=== PATIENT | female | born 1945 | race Caucasian/White ===

== ENCOUNTER → 2016-11-04 | Outpatient (REF) | payer MEDICARE, MEDICAID ==
[~2016-11-04] MED LIST: /ADVA50050 IN; /INSUREG; /METO5TA PO; /MOXI40TA; ADVAIR; AKWASOL OU; ALB2.5NEB INH; ALBU0.084 IN; ASPI81CH3 PEG; ASPI81CH32 PEG; ASPI81TA OR; ASPI81TA85 PEG; AYR0.65D; AYR0.65S; AZIT200S30 PEG; B COTAB3 PO; BACITAB3 PEG; BESI0.6S OU; BISA10SU2; CALC1CAP PEG; CALCPOW2 OR; CARBAMIDE PEROXIDE AD; CEFT500T; CINA30TA PEG; CIPR500T4; CIPRO; COLA100C GT; COLA100C2; COLA100C2 OR; COMP1PAK PO; COUM1TAB14 PEG; COUM1TAB19 PEG; COUM2.5T11 PEG; DAPT50VL IV; DARB300VL IV; DARB60SYR; DEPA500T; DEPA500T OR; DESI13CR2 TOP; DESIOIN3 TOP; DICL13PA TOP; DICL1GEL TOP; DOCU10CA GT; DOCU10CA PO; DOCU5LIQ PEG; DOXY-278 PEG; DOXY100C PEG; DOXY100C PO; DULC10SU2 PR; DULC10SU9 PR; DULCOLAX; DULCOLAX PR; ENEMENE3 PR; ERYTHROPOIETIN; ERYTOIN8 OU; FLAG500T PEG; FLEEENE4 PR; FOLI1TAB; FOLI1TAB OR; FOLI1TAB2 PEG; GUAI100S7 PEG; GUAI10EL PO; GUAIPOW; GUAIPOW OR; IBUP100S2 PO; INSUH10VL SC; IPRASOL4 IN; IPRASOL4 NEB; KEFL500C7 PEG; LEVA12INH INH; LEVA250T PEG; LEVA250T PO; LEVO100T5 PEG; LIQULIQ6 PO; LOPR50TA; LOPRESSOR; LOPRESSOR 25 MG; MANNITOL; MECLIZINE; METAMUCIL; MIAC1SPR; MIDO10TA PEG; MIDO5TA PEG; MIRALEX; MOM30SS PO; MUCI600T34 PO; MULTLIQ7 PEG; MULTTAB62 PEG; NASA0.057; NEOSSOL TOP; NEPHTAB PO; NEPRLIQ PO; NEPRLIQ3 PEG; NEUR300C; NEUR300C OR; NEXI40GR PEG; NYST10PW TOP; ONDA4TAB6 PEG; OSEL75CA PEG; PANT40TA2 PEG; PHOS667C PEG; PHOSLO; PHOSLO667 MG; PHOSLO667 MG OR; POTA20EL PEG; POTA20LI2 PEG; PRED10PA PEG; PRED10TA PO; PRED20TA; PRED20TA PEG; PRED20TA PO; PREVACID PEG; PRIL20CA; PRIL20CA OR; PROC10CA; PROC10CA OR; PROCRIT3000 MG/ML; PROT1TAB2 PEG; PROTPAK PEG; PULM0.5S INH; RANI150I2 PEG; REGL5TAB2 PEG; RENV0.8P PO; RENV2.4P PEG; RENV2TAB PEG; RENV2TAB PO; RENVELA; ROBISYP PEG; ROBISYP PO; ROBISYP3 OR; ROBITUSSIN; SENN8.6C PEG; SENS30TA PO; SODIGEL; SYNT100T; SYNT100T OR; TRAM50TA2; TRAM50TA2 OR; TRAM50TA2 PEG; TRAM50TA2 PO; ULTR50TA PO; VENOFER; VITA100037 PEG; VITA100041 PEG; VITA100066 PO; VITA1TAB28 PEG; VITAD1000T OR; VITAMIN B COMPLEX WI; VITAMIN D50000 UNT; XOPE0.632; XOPE1.252; XOPE1.252 IN; ZEMPLAR; ZITH500T PO; ZOCO20TA; ZOCO20TA OR; ZOCO20TA PEG; ZOCO5TAB; ZOCOR; ZOFR20TA PEG; ZOFR4SOL PO; [UNRECOGNIZED DRUG - CODE] IV; [UNRECOGNIZED DRUG - CODE] IV; [UNRECOGNIZED DRUG - CODE] PEG; [UNRECOGNIZED DRUG - CODE] PEG; [UNRECOGNIZED DRUG - OTHER]; [UNRECOGNIZED DRUG - OTHER]; [UNRECOGNIZED DRUG - OTHER]; [UNRECOGNIZED DRUG - OTHER]; [UNRECOGNIZED DRUG - OTHER] OR; [UNRECOGNIZED DRUG - OTHER] PEG; deltasone GT; lopressor; mycostatin TOP; phoslo; robitussin; ventolin neb INH
[2016-11-04 13:50] LABS: MEAN CORPUSCULAR HEMOGLOBIN 32.4 pg (27.0-33.0); MEAN CORPUSCULAR HGB CONC 31.8 g/dl (32.0-36.5); MEAN CORPUSCULAR VOLUME 101.8 fl (80.0-96.0); RED CELL DISTRIBUTION WIDTH 17.6 % (11.5-14.5)
== END ==
PROVIDERS: ATTEND Internal Medicine
DX: D64.9 Anemia, unspecified (principal)

== ENCOUNTER → 2016-11-07 | Outpatient (REF) | payer MEDICARE, MEDICAID ==
[2016-11-07 14:31] LABS: MEAN CORPUSCULAR HEMOGLOBIN 32.4 pg (27.0-33.0); MEAN CORPUSCULAR HGB CONC 31.2 g/dl (32.0-36.5); RED CELL DISTRIBUTION WIDTH 16.7 % (11.5-14.5); WHITE BLOOD COUNT 6.5 K/mm3 (4.0-10.0)
== END ==
PROVIDERS: ATTEND Internal Medicine
DX: D64.9 Anemia, unspecified (principal)

== ENCOUNTER 2017-01-12 20:33 | Inpatient (IN) | payer MEDICARE, MEDICAID ==
[~2017-01-12 20:33] MED LIST changes: +POTA10SO11 PEG; -POTA20EL PEG; +VANC10005 IV; -[UNRECOGNIZED DRUG - CODE] IV
[2017-01-12 21:02] LABS: BASO % 0.5 % (0.0-1.0); EOS # 0.3 K/mm3 (0.0-0.50); EOS % 3.1 % (0.0-3.0); LARGE UNSTAINED CELL # 0.1 K/mm3 (0.0-0.4); LARGE UNSTAINED CELL % 1.3 % (0.0-4.0); LYMPH # 0.7 K/mm3 (1.5-4.5); LYMPH % 6.6 % (24.0-44.0); MEAN CORPUSCULAR HEMOGLOBIN 32.6 pg (27.0-33.0); MEAN CORPUSCULAR HGB CONC 31.3 g/dl (32.0-36.5); MEAN CORPUSCULAR VOLUME 103.9 fl (80.0-96.0); MONO # 0.5 K/mm3 (0.0-0.8); MONO % 5.6 % (0.0-5.0); NEUTROPHILS # 7.2 K/mm3 (1.8-7.7); NEUTROPHILS % 82.8 % (36.0-66.0); PLATELET COUNT, AUTOMATED 185 k/mm3 (150-450); RED CELL DISTRIBUTION WIDTH 16.7 % (11.5-14.5); WHITE BLOOD COUNT 8.7 K/mm3 (4.0-10.0)
[2017-01-12 21:04] LABS: ABG BASE EXCESS 0.3 (-2.0-2.0); ABG HCO3 24.7 MEQ/L (22.0-26.0); ABG PARTIAL PRESSURE CO2 39.1 mmHg (35.0-45.0); ABG PARTIAL PRESSURE O2 64.8 mmHg (75.0-100.0); ABG STANDARD HCO3 24.6 MEQ/L (22.0-26.0); ABG TOTAL CO2 25.9 MEQ/L (23.0-31.0); ABG pH (ARTERIAL) 7.418 UNITS (7.350-7.450)
[2017-01-12 21:30] LABS: ANION GAP 15 MEQ/L (8-16); BLOOD UREA NITROGEN 55 MG/DL (7-18); CALCIUM LEVEL 9.6 MG/DL (8.8-10.2); CARBON DIOXIDE LEVEL 25 MEQ/L (21-32); CHLORIDE LEVEL 90 MEQ/L (98-107); CREATININE FOR GFR 5.79 MG/DL (0.55-1.02); GLOMERULAR FILTRATION RATE 7.6 (>39); GLUCOSE, FASTING 107 MG/DL (83-110); SODIUM LEVEL 130 MEQ/L (136-145)
[2017-01-12] MEDS: IPRATROPIUM 0.5MG/ALBUTEROL 2.5MG INH SOL UD 3ML (DUONEB)(J7620) NEB PRN ×3 (21:34→22:15)
[2017-01-12] MEDS ORDERED: MEROPENEM INJ 1 GM in D5W MINI-BAG PLUS 100 ML IV ONE (22:15)
[2017-01-12 22:50] LABS: MAGNESIUM LEVEL 3.1 MG/DL (1.8-2.4)
[2017-01-12] MEDS ORDERED: SYNT125T PO (23:25)
[2017-01-12] MEDS ORDERED: IPRATROPIUM 0.5MG/ALBUTEROL 2.5MG INH SOL UD 3ML (DUONEB)(J7620) NEB PRN (23:30)
[2017-01-12] MEDS ORDERED: CEPH500T PEG (23:30)
[2017-01-12] MEDS ORDERED: ERYTOIN8 OU (23:30)
[2017-01-13] VITALS (27 sets, daily range): BP systolic 83–152; BP diastolic 48–83; O2SAT 88–95
[2017-01-13] MEDS ORDERED: BISACODYL 10 MG SUPP PR PRN (00:15)
[2017-01-13] MEDS ORDERED: SENNA 8.6 MG TAB (SENOKOT) PEG PRN (00:15)
[2017-01-13] MEDS ORDERED: FLEET ENEMA PR PRN (00:15)
[2017-01-13] MEDS: methylPREDNISolone INJ 125 MG/2 ML VIAL (J2930) IV SCH ×4 (02:14→23:34)
[2017-01-13] MEDS: SODIUM CHLORIDE 0.9% NASAL GEL 15MG (AYR) SCH ×2 (02:14→21:21)
[2017-01-13] MEDS: ERYTHROMYCIN OPHTH OINT OU SCH ×4 (02:14→21:20)
[2017-01-13] MEDS: SIMVASTATIN 20 MG TAB PEG SCH ×2 (02:15→21:20)
[2017-01-13] MEDS: IPRATROPIUM 0.5MG/ALBUTEROL 2.5MG INH SOL UD 3ML (DUONEB)(J7620) NEB PRN (05:57)
[2017-01-13] MEDS: FOLIC ACID 1 MG TAB PEG SCH (06:08)
[2017-01-13] MEDS: LEVOTHYROXINE 0.125 MG TAB (125 MCG) PO SCH (06:08)
[2017-01-13] MEDS: CINACALCET 30 MG TAB (SENSIPAR) PEG SCH (06:08)
[2017-01-13] MEDS: METOCLOPRAMIDE 5 MG TAB PEG SCH ×2 (06:08→21:20)
[2017-01-13] MEDS: MIDODRINE 5 MG TAB PEG SCH ×3 (06:18→16:45)
[2017-01-13] MEDS: IPRATROPIUM 0.5MG/ALBUTEROL 2.5MG INH SOL UD 3ML (DUONEB)(J7620) NEB SCH ×4 (07:08→19:05)
[2017-01-13 07:27] LABS: MEAN CORPUSCULAR HEMOGLOBIN 34.2 pg (27.0-33.0); MEAN CORPUSCULAR HGB CONC 32.4 g/dl (32.0-36.5); MEAN CORPUSCULAR VOLUME 105.4 fl (80.0-96.0); RED CELL DISTRIBUTION WIDTH 16.8 % (11.5-14.5); WHITE BLOOD COUNT 9.7 K/mm3 (4.0-10.0)
[2017-01-13 07:32] LABS: ANION GAP 17 MEQ/L (8-16); BLOOD UREA NITROGEN 60 MG/DL (7-18); CALCIUM LEVEL 9.3 MG/DL (8.8-10.2); CARBON DIOXIDE LEVEL 20 MEQ/L (21-32); CHLORIDE LEVEL 90 MEQ/L (98-107); CREATININE FOR GFR 6.31 MG/DL (0.55-1.02); GLOMERULAR FILTRATION RATE 6.9 (>39); GLUCOSE, FASTING 147 MG/DL (83-110); SODIUM LEVEL 127 MEQ/L (136-145)
[2017-01-13 08:20] LABS: POTASSIUM SERUM 5.8 MEQ/L (3.5-5.1)
--- NOTE | 2017-01-13 08:44 | REP ---
Portable chest x-ray: Sitting AP view. History: Dyspnea. Cough. Comparison study is from October 16, 2016. Findings: The patient is rotated somewhat to the left for the current exam. Mild cardiomegaly is observed. A tunneled catheter is seen on the right side with its tip in the region of the right atrium. Pulmonary vasculature is congested. No pleural effusion is seen. No infiltrate is noted. Impression: Pulmonary vascular congestion. No acute infiltrate seen. Signed by Yoshi Day MD 01/13/2017 12:16 P
[2017-01-13] MEDS: CALCITONIN NASAL SPRAY 3.7 ML BTL SCH (08:59)
[2017-01-13] MEDS: POLYVINYL ALCOHOL OPHTH SOLN 15 ML(LIQUITEARS) OU SCH ×4 (09:00→21:20)
[2017-01-13] MEDS: HEPARIN SOD (PORCINE) 5000 UNITS/ML VIAL SC SCH ×2 (09:00→21:20)
[2017-01-13] MEDS ORDERED: POTASSIUM CHLORIDE 10% LIQ 20 MEQ/15 ML UDC PEG SCH (09:00)
[2017-01-13] MEDS ORDERED: HEPARIN 1,000 UNITS/ML 10ML VIAL (FOR RADIOLOGY& DIALYSIS ONLY) IV ONE (09:30)
--- NOTE | 2017-01-13 17:43 | ECGEPIP ---
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
--- NOTE | 2017-01-13 22:12 | HPE ---
DATE OF ADMISSION: 01/12/2017 PRIMARY CARE PROVIDER: Dr. Heather Childers CHIEF COMPLAINT: Shortness of breath. HISTORY OF PRESENT ILLNESS: The patient is a 71-year-old severely deaf woman with known history of diastolic congestive heart failure, end-stage renal disease on hemodialysis, chronic obstructive pulmonary disease (COPD), who lives at [facility] where she was reportedly found to be more tachypneic and bradycardic. At that point in time, they brought her to the emergency room for evaluation. In the emergency room, she was found to be mostly edematous and hospitalist team was called for admission. At this time, the patient tells me she is feeling better. She denies shortness of breath. She knows she is in the hospital. She knows she is in [place], but she is very hard of hearing. At the present time, she denies any pain or shortness of breath, nausea, vomiting, fevers, or chills, or cough, or recent sick contacts. PAST MEDICAL HISTORY: 1. End-stage renal disease on hemodialysis Friday, Friday, and Friday. 2. Diastolic congestive heart failure. 3. COPD on two liters of oxygen at baseline. 4. Mild mental retardation. 5. Dementia. 6. Aspiration status post percutaneous endoscopic gastrostomy (PEG) tube. 7. Severely deaf. 8. Seizure disorder. 9. Recurrent gastrointestinal bleeds in the past. 10. Hypothyroidism. 11. Osteoarthritis. PAST SURGICAL HISTORY: 1. PEG tube placement. 2. Catheter insertion. 3. Pericardial window. ALLERGIES: PENICILLIN, ACETAMINOPHEN. SOCIAL HISTORY: She is a DO NOT RESUSCITATE. She lives at [facility]. No alcohol or illicit drug use, or tobacco use. FAMILY HISTORY: Noncontributory. REVIEW OF SYSTEMS: Negative other than history of present illness (HPI). HOME MEDICATIONS: - DuoNebs four times a day - cephalexin 500 mg via PEG twice a day - Nepro with carbohydrate studies 200 mL via PEG four times a day - Renvela 2.4 grams pack via PEG daily - vitamin D and C, one tablet via the PEG daily - zinc oxide 13% cream topically dose daily. - artificial tears 1.4% two drops OU four times a day - Dulcolax 10 mg suppository per rectum as needed for constipation - calcitonin 200 units - nasal spray daily - cinacalcet 30 mg through the PEG daily - erythromycin 5 mg/gram ointment OU three times a day - folic acid 1 mg daily - levothyroxine 125 mcg daily - Reglan 5 mg by mouth twice a day - mitogen 10 mg via the PEG tube three times a day - potassium chloride 10 mEq via the PEG daily - senna 8.6 mg at bedtime as needed constipation - simvastatin - Zocor 20 mg via the PEG at bedtime - sodium phosphate enema as needed for constipation PHYSICAL EXAMINATION: Heart rate 54, appears to be in sinus rhythm, respiratory rate 22, blood pressure 160/65, oxygen saturation 97% on two liters. GENERAL: She is a frail, elderly, obese, female sitting up on the stretcher. She appears comfortable. She takes short breaths, but does not appear to be in any acute distress. HEENT: Poor dentition. Moist mucous membranes. Unable to asses for elevation of central venous pressure secondary to body habitus. She is very deaf and answers questions only when screamed directly in her ear. CARDIOVASCULAR: S1, S2, bradycardic. No distant heart sounds appreciated. RESPIRATORY EXAM: Short breaths with diffuse expiratory wheeze. ABDOMEN: Grossly obese. EXTREMITIES: There is 2+ edema bilaterally. She has an HD Cath in the right side of the chest. LABORATORY STUDIES: WBC 8.7, hemoglobin 11.9, hematocrit 38, platelet count is 185. Chemistry panel: Sodium 130, potassium 5, chloride 90, bicarbonate 25, BUN 55, creatinine 5.7, lactic acid 2.3, magnesium 3.1, BNP is elevated at 1600. Arterial blood gas reveals a pH of 7.4, pCO2 of 39.1, pO2 of 64.8. Blood cultures are pending. Influenza swab is negative. IMAGING: The patient had a chest x-ray that appears to reveal some venous congestion and pulmonary edema. ASSESSMENT AND PLAN: This is a 71[facility] with known history of chronic obstructive pulmonary disease (COPD) and end-stage renal disease presenting with dyspnea. 1. Dyspnea. She does appear to be improved. At the present time thus far in the emergency room (ER), she has received nebulizer treatments. Based on her physical exam, I suspect this is more diastolic congestive heart failure decompensation with pulmonary edema. The patient will benefit from hemodialysis. She is mildly more hypoxic from her baseline but improved with sitting up. We will keep the head of her bed up. We will monitor intake and output and daily weights. We will place a consult to Dr. Márquez of nephrology to see if he can help us with dialysis and fluid removal tomorrow. Tomorrow is her regularly scheduled dialysis day. 3. Less likely decompensation of her chronic obstructive pulmonary disease (COPD). May be contributing to her shortness of breath as well. Her baseline is two liters of oxygen. She is requiring four liters while I am in the room in the ER. They are trending it up. I will treat her with Solu-Medrol and nebulizer treatments. Nebulizer treatments did appear to help her in the emergency room; however, I am not convinced of any infectious process acutely at this time. Her chest x-ray preliminary read has concern for right middle lobe pneumonia comparing with old prior exams. I am not convinced of this. This is something new. She is not febrile. She is not tachycardic. She is not hypothermic. I think she has a health care associative pneumonia. At this time, I will hold off on any antibiotics. We will culture her. 4. End-stage renal disease as outlined above. We will continue her home medications. 5. Aspiration. The patient is status post percutaneous endoscopic gastrostomy and she receives her medication through this. 6. Severe deafness. The patient will has to be screamed directly in her ear but this is done so she does answer questions appropriate. 7. Secondary hyperparathyroidism. The patient is on Remeron, calcitonin. 8. Hyperparathyroidism. We will check a TSH. Continue with levothyroxine. 9. Bradycardia. Patient has been bradycardic in the past and looking back at old vital stats. However, she does appear to be slightly more so and she does appear to be in sinus rhythm. I will recheck an EKG and admit her to the progressive care unit (PCU) and monitor her closely. We will trend her cardiac enzymes and her lactic acid. She is asymptomatic. 10. Chronic constipation. Continue with her home bowel regimen. 11. Dyslipidemia. Continue with statin. 12. Chronic hypotension. The patient is on midodrine. 13. Deep vein thrombosis (DVT) prophylaxis. The patient is on heparin. DISPOSITION: The patient is admitted to the progressive care unit under the care of Dr. Márquez who will continue to follow the patient at 7 a.m. [facility]ITAL[facility]
[2017-01-14] VITALS (7 sets, daily range): BP systolic 113–134; BP diastolic 59–63
[2017-01-14 05:08] LABS: MEAN CORPUSCULAR HEMOGLOBIN 31.2 pg (27.0-33.0); MEAN CORPUSCULAR HGB CONC 30.1 g/dl (32.0-36.5); MEAN CORPUSCULAR VOLUME 103.6 fl (80.0-96.0); RED CELL DISTRIBUTION WIDTH 16.2 % (11.5-14.5); WHITE BLOOD COUNT 7.4 K/mm3 (4.0-10.0)
[2017-01-14] MEDS: LEVOTHYROXINE 0.125 MG TAB (125 MCG) PO SCH (05:21)
[2017-01-14] MEDS: MIDODRINE 5 MG TAB PEG SCH ×4 (05:21→16:42)
[2017-01-14 05:29] LABS: ALBUMIN 3.9 GM/DL (3.2-5.2); CALCIUM LEVEL 9.4 MG/DL (8.8-10.2); CREATININE FOR GFR 3.81 MG/DL (0.55-1.02); GLOMERULAR FILTRATION RATE 12.4 (>39); PHOSPHORUS LEVEL 4.1 MG/DL (2.5-4.9)
[2017-01-14] MEDS: IPRATROPIUM 0.5MG/ALBUTEROL 2.5MG INH SOL UD 3ML (DUONEB)(J7620) NEB SCH ×4 (08:02→20:36)
[2017-01-14] MEDS: HEPARIN SOD (PORCINE) 5000 UNITS/ML VIAL SC SCH ×2 (08:54→21:18)
[2017-01-14] MEDS: CINACALCET 30 MG TAB (SENSIPAR) PEG SCH (08:54)
[2017-01-14] MEDS: methylPREDNISolone INJ 125 MG/2 ML VIAL (J2930) IV SCH ×2 (08:54→16:43)
[2017-01-14] MEDS: POLYVINYL ALCOHOL OPHTH SOLN 15 ML(LIQUITEARS) OU SCH ×4 (08:55→21:19)
[2017-01-14] MEDS: CALCITONIN NASAL SPRAY 3.7 ML BTL SCH (08:55)
[2017-01-14] MEDS: ERYTHROMYCIN OPHTH OINT OU SCH ×3 (08:55→21:19)
[2017-01-14] MEDS: METOCLOPRAMIDE 5 MG TAB PEG SCH ×2 (08:55→21:17)
[2017-01-14] MEDS: FOLIC ACID 1 MG TAB PEG SCH (08:55)
--- NOTE | 2017-01-14 10:17 | CR ---
DATE OF CONSULTATION: 01/13/2017 REFERRING PHYSICIAN: Dr. Dari Montez REASON FOR CONSULTATION: Shortness of breath in this lady with end-stage renal disease. HISTORY OF PRESENT ILLNESS: Mrs. Navarrete is a 71-year-old female who is a long[facility]term [facility] resident with multiple core morbid conditions. She has a long history of end-stage renal disease, COPD, diastolic congestive heart failure, coronary artery disease and mental retardation. The patient was sent to the emergency room last evening due to shortness of breath. She did receive her last hemodialysis treatment on Friday. However, over the weekend she developed shortness of breath. She is admitted to intensive care unit and is requiring 4 liters of oxygen via nasal cannula to maintain her oxygen saturation above 90%. A nephrology consultation was requested for urgent hemodialysis this morning. Dr. Reddy called for a consult. PAST MEDICAL AND SURGICAL HISTORY: Significant for: 1. End-stage renal disease. 2. COPD. 3. 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 4. History of coronary artery disease. 5. History of diastolic congestive heart failure. 6. History of pulmonary hypertension. 7. History of mild dementia and mental retardation. 8. History of mitral regurgitation. 9. History of atrial fibrillation. 10. History of coronary artery disease. 11. Hypothyroidism. 12. History of multiple pulmonary nodules. 13. History of seizure disorder. 14. History of severe degenerative arthritis and inability to ambulate. 15. History of recurrent aspiration pneumonias in the past, status post feeding tube placement. 16. History of anemia of chronic kidney disease. 17. Prior history of MRSA bacteremia in the past. MEDICATIONS: Her [facility] medications include: -Nepro 200 via G-tube four times a day. - multivitamin liquid 5 mL once a day - Aspirin 81 mg daily. - DuoNebs as needed for shortness of breath. - Calcitonin 200 units intranasally 1 spray once a day. - Sensipar 30 mg daily - Folic acid 1 mg daily. - levothyroxine 100 mcg daily. - Midodrine 10 mg three times a day for chronic hypotension. - potassium chloride 20 mEq daily via G-tube. - Zocor 20 mg daily. - Renvela suspension 2.4 grams per day. ALLERGIES: The patient has allergy to PENICILLIN and ACETAMINOPHEN. PERSONAL AND SOCIAL HISTORY: The patient is and is currently [facility] resident. She does not smoke or drink. She is poorly communicative. FAMILY HISTORY: Negative for end-stage renal disease. REVIEW OF SYSTEMS: The patient is unable to provide much information. She is awake and interactive, however does not talk much. She is quite short of breath. There is no reported fever or chills. She is currently receiving 4 liters oxygen via nasal cannula. No other pertinent information is available or can be obtained. PHYSICAL EXAMINATION: Temperature is 97.2 degrees Fahrenheit, heart rate 60 per minute and respiratory rate 24 per minute. Blood pressure 104/55 mmHg and oxygen saturation 96% on 4 liters oxygen. Head is atraumatic. Oral hygiene is poor. Pupils are equal and reactive to light and sclera is anicteric. Neck is short and impossible to check for jugular venous distention. The range of motion is quite limited on her neck and shoulders. Heart sounds are distant but regular. Lungs have bilateral rhonchi and expiratory wheezing. Abdomen is soft and a G-tube is in place. Bowel sounds are present. Extremities: Have no cyanosis or clubbing. Skin has no rash or ulcers. Neurologically she is awake and interactive. She does not talk much however she does node her head on questions. LABORATORY DATA: WBC count 8.7, hemoglobin 11.9 and hematocrit 38.0. Sodium 127 and potassium 5.8. CO2 20, chloride 90, BUN 60 and creatinine 6.31. Lactic acid 2.3 and calcium 9.3. Her BNP level is 1600. Blood gas showed a pH of 7.41, pCO2 39 and pO2 64. Chest x-ray done in the emergency room was reviewed independently. She has cardiomegaly and bilateral pulmonary vascular congestion. There is a questionable left pleural effusion. PROBLEMS: 1. Shortness of breath: Most likely this is related to a combination of COPD and volume overload. She does have history of similar episodes in the past. Urgent hemodialysis is being arranged this morning and will try to remove about 3 liters of fluid as tolerated. After dialysis, she will be reassessed and we will consider further dialysis tomorrow if indicated. In the meantime she should remain on limited fluids. She does require tube feeding and fluids with her medications via G-tube. 2. Hyperkalemia: This is related to feeds and potassium supplement. In the past, she has been hypokalemia. We will recheck her electrolytes tomorrow morning. She will be dialyzed with 2.0 mEq potassium bath. 3. Hyponatremia: This is most likely related to volume overload. Will remove about 3 liters of fluid which is likely to help with her hyponatremia. 4. End-stage renal disease: The patient is due for hemodialysis today. We will perform her full regular hemodialysis for 3-1/2 hours. 5. Chronic hypotension: The patient has been on midodrine 10 mg three times a day due to chronic hypotension. I recommend to continue with the same. 6. COPD: The patient does have chronic lung disease and I would recommend to continue with bronchodilator nebulizers. I do not feel that at this point she needs steroids as most of her problem is related to volume overload. I thank you for involving me in the care of Mrs. Navarrete. I will follow her along with you.
--- NOTE | 2017-01-14 17:12 | IPN ---
DATE: 01/14/2017 SUBJECTIVE: This is a 71-year-old female who was seen and examined at bedside. Yesterday, she underwent hemodialysis and tolerated that well. She had 3 liters removed. Per nursing staff, her breathing has been more comfortable. The patient herself wants to know when she can go home. Denies any chest pain, palpitations, fevers, chills, diarrhea, constipation, abdominal pain. She still has shortness of breath, but improved. OBJECTIVE: VITAL Signs: Blood pressure 128/59, heart rate 68, temperature 99, respiratory rate 26, pulse oximetry 95% on 2 liters nasal cannula. Intake and output last 24 hours: 1280 and 3 liters. Weight is 64.2 kg, yesterday it was documented at 67.2. One bowel movement. General: The patient was lying in bed, comfortable, in no acute distress, chronically ill appearing but smiling, pleasant. HEENT: Normocephalic, atraumatic. Poor dentition. Moist oral mucosa. Extraocular movement intact. Sclerae is anicteric. Neck is large. Could not appreciate jugular venous distention (JVD) secondary to neck size. Chest: Symmetric chest rise with some abdominal muscle use. Heart sounds distant sounding but regular. Lungs were diminished bilateral lung bases with occasional crackle, improved compared to yesterday. Abdomen is soft, nontender, nondistended. Bowel sounds present. No guarding, no rebound. Left abdomen has a G-tube in place. Area is clean and dry. Extremities: No pedal edema. Pedal pulses present bilaterally. No clubbing or cyanotic skin. Neurologically, the patient tends to nod throughout her exam. Does answer and ask questions appropriately. LABORATORY DATA: WBC 7.4, hemoglobin 11.2, hematocrit 37.2, platelets 170. No significant change compared to yesterday. Sodium 131, improved from yesterday 127, potassium 5, chloride 95, carbon dioxide 24, BUN 43, creatinine 3.81, fasting glucose 147, calcium 9.4, phosphorus 4.1, albumin 3.9. IMPRESSION AND PLAN: Ms. Navarrete is a pleasant 71-year-old female with an extensive past medical history including end-stage renal disease, on hemodialysis, restrictive lung disease due to chest deformity, coronary artery disease, diastolic heart failure , pulmonary hypertension, admitted for congestive heart failure exacerbation. 1. Acute hypoxic respiratory failure. Due to a combination of chronic obstructive pulmonary disease and congestive heart failure exacerbation. She is currently on Solu-Medrol three times a day. She is status post dialysis yesterday and tolerated that well. Was able to remove 3 liters as planned. Because she is improving today, we will plan for dialysis tomorrow. Continue tube feedings four times a day. 2. Hyperkalemia. Patient chronically runs hypokalemia. She was dialyzed yesterday and potassium has now improved. We discontinued her potassium supplementation, which she requires frequently outpatient due to her chronic hypokalemia. 3. Hyponatremia. Likely secondary to fluid overload. Her volume has improved and so has her sodium level. 4. Chronic hypocalcemia. Continue calcitonin. 5. End-stage renal disease, on hemodialysis yesterday, next dialysis will be tomorrow. 6. Chronic hypotension. Continue midodrine 10 mg three times a day. 7. Chronic obstructive pulmonary disease. She is on steroids; however, her symptoms were likely secondary to congestive heart failure rather than COPD and might not require current strong dose of Solu-Medrol. My preceptor for this patient encounter was Dr. Márquez. The preceptor was physically present in the building during the encounter and was fully available. As needed, all aspects of the patient interview, examination, medical decision making process, and medical care plan development were reviewed and approved by the preceptor. The preceptor is aware and concurs with the plan as stated in the body of this note and will attest to such by his/her cosignature. IRA
--- NOTE | 2017-01-14 17:19 | IPN ---
DATE: 01/14/2017 Ms. Navarrete has done well overnight. She is not a particularly useful historian. No issues noted by staff. Temperature is 96.8, pulse 66, respiratory rate 24, blood pressure 133/62, 94% on 2 liters. Intake and output notable for a negative fluid balance of -1720, one bowel movement yesterday. She is awake, smiling, appears happy. Breathing is symmetrically diminished, I:E ratio is 1:4. Heart is distant sounding. Normal S1, S2. Abdomen is soft, doughy, nontender. White cell count 7.4, BUN 43, creatinine 3.81. Sodium is 131, up from 127. My assessment is as follows: This is a 71-year-old with chronic obstructive pulmonary disease (COPD) and end-stage renal disease who presents with dyspnea, most likely related to fluid overload and need for dialysis. PLAN: 1. Dyspnea. This appears to be improved status post dialysis. I did discuss this case in person with Dr. Márquez. 2. The patient has end-stage renal disease. 3. The patient has a history of aspiration and has a history of a percutaneous endoscopic gastrostomy (PEG) through which she receives her medication. 4. The patient has severe deafness. 5. The patient has hyperparathyroidism. 6. The patient has a history of bradycardia. 7. The patient has chronic constipation. 8. The patient has appropriate deep vein thrombosis (DVT) prophylaxis. 9. The patient will be transferred to the medical-surgical floor.
[2017-01-14] MEDS: SODIUM CHLORIDE 0.9% NASAL GEL 15MG (AYR) SCH (21:00)
[2017-01-14] MEDS: SIMVASTATIN 20 MG TAB PEG SCH (21:17)
[2017-01-15] MEDS: methylPREDNISolone INJ 125 MG/2 ML VIAL (J2930) IV SCH ×2 (00:15→06:01)
[2017-01-15] MEDS: FOLIC ACID 1 MG TAB PEG SCH (05:57)
[2017-01-15] MEDS: MIDODRINE 5 MG TAB PEG SCH ×3 (05:57→18:38)
[2017-01-15] MEDS: CINACALCET 30 MG TAB (SENSIPAR) PEG SCH (05:58)
[2017-01-15] MEDS: LEVOTHYROXINE 0.125 MG TAB (125 MCG) PO SCH (05:58)
[2017-01-15] MEDS: METOCLOPRAMIDE 5 MG TAB PEG SCH ×2 (05:58→21:39)
[2017-01-15] MEDS: ERYTHROMYCIN OPHTH OINT OU SCH ×3 (05:59→21:38)
[2017-01-15] MEDS: POLYVINYL ALCOHOL OPHTH SOLN 15 ML(LIQUITEARS) OU SCH ×4 (05:59→21:38)
[2017-01-15 06:00] VITALS: BP 127/62
[2017-01-15] MEDS: HEPARIN SOD (PORCINE) 5000 UNITS/ML VIAL SC SCH ×2 (06:00→21:38)
[2017-01-15] MEDS: CALCITONIN NASAL SPRAY 3.7 ML BTL SCH (06:00)
[2017-01-15] MEDS: IPRATROPIUM 0.5MG/ALBUTEROL 2.5MG INH SOL UD 3ML (DUONEB)(J7620) NEB SCH ×5 (08:00→21:51)
--- NOTE | 2017-01-15 08:11 | ECGEPIP ---
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
[2017-01-15] MEDS: predniSONE 20 MG TAB PO SCH (08:20)
[2017-01-15 08:28] LABS: ALBUMIN 3.8 GM/DL (3.2-5.2); CALCIUM LEVEL 8.7 MG/DL (8.8-10.2); CREATININE FOR GFR 5.58 MG/DL (0.55-1.02); PHOSPHORUS LEVEL 5.7 MG/DL (2.5-4.9); POTASSIUM SERUM 4.9 MEQ/L (3.5-5.1)
[2017-01-15 08:29] LABS: MEAN CORPUSCULAR HEMOGLOBIN 32.1 pg (27.0-33.0); MEAN CORPUSCULAR VOLUME 103.4 fl (80.0-96.0); RED CELL DISTRIBUTION WIDTH 16.2 % (11.5-14.5)
[2017-01-15] MEDS ORDERED: HEPARIN 1,000 UNITS/ML 10ML VIAL (FOR RADIOLOGY& DIALYSIS ONLY) IV ONE (12:15)
[2017-01-15] MEDS ORDERED: HEPARIN 1,000 UNITS/ML 10ML VIAL (FOR RADIOLOGY& DIALYSIS ONLY) XX ONE (12:15)
[2017-01-15 14:00] VITALS: BP 119/58
--- NOTE | 2017-01-15 15:19 | IPN ---
DATE: 01/15/2017 Ms. Navarrete is feeling well today. She has no complaints of pain, chest pain, or shortness of breath. It is difficult to communicate with her but she is able to share at least that much. No issues noted by staff. Temperature is 98, pulse 64, respiratory rate 22, blood pressure 127/68, 94% on two liters. Intake and output notable for a positive fluid balance of 1020. Weight 65.5 kg. She is awake, appropriately interactive, laughing, smiling. Mucous membranes are moist. Neck is supple. Breathing is symmetrically diminished. Heart is distant sounding, normal S1, S2. Abdomen is soft, doughy, somewhat distended but nontender. LABORATORY DATA: White cell count is 11, hemoglobin 11.5, platelets of 202. Sodium is 130, potassium 4.9, chloride 91, carbon dioxide 22, BUN is 85 with a creatinine of 5.58. ASSESSMENT: This is a 71-year-old with chronic obstructive pulmonary disease (COPD) and end-stage renal disease who presented with dyspnea, most likely related to fluid overload and need for dialysis. PLAN: 1. Dyspnea. This is much improved. She is planned for dialysis today and possible discharge tomorrow. Case was discussed with the renal team. 2. The patient has end-stage renal disease. 3. The patient has a history of aspiration and percutaneous endoscopic gastrostomy (PEG) tube. There was concern at the time of presentation for the possibility of reactive airway disease. Steroids were started and are now being weaned. 4. The patient has severe deafness. 5. The patient has hyperparathyroidism. 6. The patient has chronic constipation. 7. The patient has appropriate deep vein thrombosis (DVT) prophylaxis. Plan for discharge tomorrow.
[2017-01-15] MEDS: SIMVASTATIN 20 MG TAB PEG SCH (21:39)
[2017-01-15] MEDS: SODIUM CHLORIDE 0.9% NASAL GEL 15MG (AYR) SCH (21:44)
[2017-01-15 22:00] VITALS: BP 145/69
[2017-01-16] MEDS: LEVOTHYROXINE 0.125 MG TAB (125 MCG) PO SCH (05:22)
[2017-01-16] MEDS: MIDODRINE 5 MG TAB PEG SCH ×2 (05:22→12:34)
[2017-01-16 06:00] VITALS: BP 149/71
--- NOTE | 2017-01-16 07:06 | IPN ---
DATE OF VISIT: 01/15/2017 SUBJECTIVE: This is a 71-year-old female seen and examined in the dialysis room. Overnight no reported acute event. Continues to feel well, denies any chest pain , fevers, chills, nausea. She was transferred from intensive care unit (ICU) to med/surg yesterday. OBJECTIVE: VITAL SIGNS: Blood pressure 127/62, heart rate 64, temperature 98, respiratory rate 22, pulse oximetry 94% on 2 liters nasal cannula. Intake and output last 24 hours was 1020, no output documented. Weight is 65.5 kg. GENERAL: The patient is lying in bed comfortable, no acute distress. Awake, alert and oriented person, chronically ill appearing. Smiling and pleasant. HEENT: Normocephalic atraumatic. Dry oral mucosa. Poor dentition. Missing teeth. NECK: Large, could not appreciate jugular venous distention (JVD) secondary to neck size. CHEST: Symmetric chest rise. No abdominal muscle use today. Breath sounds diminished bilateral lung bases and anteriorly. HEART: Distant sounding but regular. ABDOMEN: Soft, nontender, nondistended. Bowel sounds present. No guarding, no rebound. Gastric (G) tube in place. EXTREMITIES: No pedal edema. Pedal pulses present bilaterally. Right fistula is working, currently being dialyzed. NEUROLOGIC: Nods throughout the examination. Responds to questions appropriately. PSYCHIATRIC: Always pleasant, smiling, cooperative. LABORATORY DATA: WBC 11, hemoglobin 11.5, hematocrit 37.1, platelets 202. Sodium 130 decreased from yesterday 131, potassium 4.9, chloride 91, carbon dioxide 22, BUN 85, creatinine 5.58, glucose 157, calcium 8.7, phosphorus 5.7. Blood culture negative after 48 hours. IMPRESSION AND PLAN: Ms. Navarrete is a pleasant 71-year-old female with history of endstage renal disease on hemodialysis, restrictive lung disease due to chest deformity, coronary artery disease (CAD), diastolic heart failure, admitted for congestive heart failure (CHF) exacerbation. 1. Acute hypoxic respiratory failure. Resolved. This morning she was changed from Solu-Medrol to prednisone daily. She is undergoing hemodialysis today. 2. Hyponatremia. This is secondary to fluid overload. No significant change compared to yesterday. 3. Chronic hypocalcemia. She is on calcitonin spray. 4. Endstage renal disease on hemodialysis. She is currently undergoing hemodialysis today and tolerating well. Her regular dialysis days are Friday, Friday and Friday. 5. Chronic hypotension. Her home dose Midodrine 10 mg three times a day is continued inpatient. 6. Hyperlipidemia. Continue home dose of Zocor. 7. Secondary hyperparathyroidism. Continue Sensipar 30mg via percutaneous endoscopic gastrostomy (PEG) daily. 8. Hyperkalemia. Resolved with dialysis. The patient chronically runs hypokalemic outpatient and she will likely require her home dose potassium supplementation whenever discharged. From a renal standpoint, if she continues to be doing well the patient may be able to be discharged tomorrow. My preceptor for this patient encounter was Dr. Márquez. The preceptor was physically present in the building during the encounter and was fully available as needed. All aspects of the patient interview, examination, medical decision making process, and medical care plan development were reviewed and approved by the preceptor. The preceptor is aware and concurs with the plan as stated in the body of this note and will attest to such by his co-signature. IRA
[2017-01-16 07:38] LABS: MEAN CORPUSCULAR HEMOGLOBIN 32.9 pg (27.0-33.0); MEAN CORPUSCULAR HGB CONC 31.5 g/dl (32.0-36.5); MEAN CORPUSCULAR VOLUME 104.6 fl (80.0-96.0); RED CELL DISTRIBUTION WIDTH 16.1 % (11.5-14.5); WHITE BLOOD COUNT 12.4 K/mm3 (4.0-10.0)
[2017-01-16] MEDS: IPRATROPIUM 0.5MG/ALBUTEROL 2.5MG INH SOL UD 3ML (DUONEB)(J7620) NEB SCH ×2 (07:46→11:31)
[2017-01-16 07:50] LABS: CALCIUM LEVEL 8.8 MG/DL (8.8-10.2); CREATININE FOR GFR 3.71 MG/DL (0.55-1.02); GLOMERULAR FILTRATION RATE 12.7 (>39); PHOSPHORUS LEVEL 4.3 MG/DL (2.5-4.9); POTASSIUM SERUM 3.9 MEQ/L (3.5-5.1)
[2017-01-16] MEDS ORDERED: DELT1TAB PO (09:48)
[2017-01-16] MEDS: HEPARIN SOD (PORCINE) 5000 UNITS/ML VIAL SC SCH (10:48)
[2017-01-16] MEDS: CINACALCET 30 MG TAB (SENSIPAR) PEG SCH (10:49)
[2017-01-16] MEDS: FOLIC ACID 1 MG TAB PEG SCH (10:50)
[2017-01-16] MEDS: predniSONE 20 MG TAB PO SCH (10:50)
[2017-01-16] MEDS: METOCLOPRAMIDE 5 MG TAB PEG SCH (10:50)
[2017-01-16] MEDS: POLYVINYL ALCOHOL OPHTH SOLN 15 ML(LIQUITEARS) OU SCH (10:52)
[2017-01-16] MEDS: CALCITONIN NASAL SPRAY 3.7 ML BTL SCH (10:52)
[2017-01-16] MEDS: ERYTHROMYCIN OPHTH OINT OU SCH (10:52)
--- NOTE | 2017-01-17 09:33 | DSES ---
DATE OF ADMISSION: 01/12/2017 DATE OF DISCHARGE: 01/16/2017 SPECIALISTS INVOLVED IN CARE: Dr. Márquez. COMPLICATIONS OF STAY: None. PROCEDURES PERFORMED DURING STAY: None. DISCHARGE DIAGNOSES: 1. Acute hypoxic respiratory failure from fluid overload and need for dialysis. 2. Hyponatremia. 3. Chronic hypocalcemia. 4. End stage renal disease, on hemodialysis. 5. Chronic hypotension. 6. Hyperlipidemia. 7. Secondary hyperparathyroidism. 8. Reactive airway disease. 9. Severe deafness. SUMMARY OF HOSPITALIZATION: This is a 71-year-old with known diastolic congestive heart failure, end stage renal disease, edema, and shortness of breath who was thought to need dialysis who was admitted to the hospitalist service and underwent dialysis. She improved markedly. There was also some concern about the possibility of reactive airway disease. She was started on steroids and will continue a short course. She has improved quickly. Today, appears to be back at her baseline. The case was discussed with her attending smoking pipe coater. On the day of discharge, she is awake, appropriately interactive. She is exceedingly hard of hearing, but is answering questions appropriately. Breathing is symmetrical. I:E ratio is 1:3. There are no wheezes while she was sleeping and she was not tachypneic, but when awake and somewhat excited about going home she becomes tachypneic. Heart is in a regular rate and rhythm. Abdomen soft, doughy, nontender. Temperature 98. Pulse 58. Respiratory rate 18. Blood pressure 149/71. 96% on 2 liters. White cell count is 12.4, hemoglobin 13, BUN 6, creatinine 3.71, with a sodium of 134. DISCHARGE INSTRUCTIONS (include the following). Continue with dialysis on her Friday, Friday, Friday schedule. Followup with [facility] provider within one week. Activity as tolerated. Renal diet. MEDICATIONS AT TIME OF DISCHARGE (include): - prednisone 40 mg by mouth daily for three more days - DuoNebs inhaled four times daily - Artificial Tears 2 drops each eye four times daily - Dulcolax 10 mg rectally daily as needed for constipation - calcitonin 200 units nasally daily - Sensipar 30 mg by percutaneous endoscopic gastrostomy (PEG) tube daily - erythromycin ointment as directed - folic acid 1 mg by PEG tube daily - Synthroid 125 mcg by PEG tube daily - Reglan 5 mg by PEG tube twice daily - midodrine 10 mg by PEG tube three times a day - Nepro with Carb liquid feeds 200 mL by PEG tube four times daily - potassium chloride 10 mEq by PEG tube daily - Senokot 1 capsule by PEG tube daily at bedtime - Renvela 2.4 grams by PEG tube daily - Zocor 20 mg by PEG tube daily at bedtime - saline nasal spray as needed - Fleet enema as needed - vitamin B/C by PEG tube daily - zinc oxide topically as needed around her PEG tube Discontinue Keflex.
== END 2017-01-16 12:47 | DRG 682 ==
LOC: EDBD 20:33 → M ED 21:08 → M ED INP 23:34 → M ICU 01-13 06:39 → M MS5PR 01-14 17:08
PROVIDERS: ADMIT Internal Medicine; ATTEND Internal Medicine
PROC: 5A1D60Z (ICD-10-PCS; principal; 2017-01-15)
DX: N18.6 End stage renal disease (principal); I50.33 Acute on chronic diastolic (congestive) heart failure; E87.1 Hypo-osmolality and hyponatremia; N25.81 Secondary hyperparathyroidism of renal origin; R06.00 Dyspnea, unspecified; J44.9 Chronic obstructive pulmonary disease, unspecified; F70 Mild intellectual disabilities; F03.90 Unspecified dementia, unspecified severity, without behavioral disturbance, psychotic disturbance, mood disturbance, and anxiety; G40.909 Epilepsy, unspecified, not intractable, without status epilepticus; I95.89 Other hypotension; E03.9 Hypothyroidism, unspecified; E83.51 Hypocalcemia; M19.90 Unspecified osteoarthritis, unspecified site; E87.79 Other fluid overload; I27.2 Other secondary pulmonary hypertension; H91.93 Unspecified hearing loss, bilateral; R00.1 Bradycardia, unspecified; Z93.1 Gastrostomy status; Z66 Do not resuscitate; Z79.899 Other long term (current) drug therapy; E78.5 Hyperlipidemia, unspecified; Z99.2 Dependence on renal dialysis; I48.91 Unspecified atrial fibrillation; Z86.14 Personal history of Methicillin resistant Staphylococcus aureus infection; Z88.0 Allergy status to penicillin; Z88.6 Allergy status to analgesic agent

== ENCOUNTER → 2017-02-05 | Outpatient (CLI) | payer MEDICARE, MEDICAID ==
[~2017-02-05] MED LIST changes: +CEPH500T PEG; -COLA100C GT; +COLA100C3 GT; +DELT1TAB PO; +HEPARIN 1,000 UNITS/ML 10ML VIAL (FOR RADIOLOGY& DIALYSIS ONLY) As Ordered ONE; +ISOVUE-300 61% 50ML VIAL (Q9967) As Ordered ONE; +LIDOCAINE 2% MDV 20 ML VIAL As Ordered ONE; +LIDOCAINE W/EPINEPHRINE 1% 20ML VIAL As Ordered ONE; -PHOS667C PEG; +PHOS667C5 PEG; +SODIUM BICARBONATE 8.4% INJ 50MEQ 50 ML VIAL As Ordered ONE; +SYNT125T PO
--- NOTE | 2017-02-05 15:19 | REPKIM ---
CLINICAL HISTORY: Patient with a history of end stage renal disease is receiving on going hemodialysis via a tunneled hemodialysis catheter in the right internal jugular vein. Poor flow during dialysis treatment. PROCEDURE PERFORMED: 1. Superior Vena Cavagram/Catheter injection 2. Fibrin Sheath Disruption 3. Tunneled Dialysis Catheter Change INTERVENTIONALIST: Abi Pleitez MD GLUE MAKER BONE: BRANDIE Quintero IV CONSENT: The risks, benefits and alternatives to the procedure were explained to the patients sister in law and son (Gracie Munson and Jethro Navarrete Jr) and informed phone consent was obtained and witnessed. MEDICATIONS: Local Lidocaine EBL: 20 mL CONTRAST: 5 mL Isovue 300 FLUORO TIME: 5.7 minutes DEVICES USED: 12mm x 4cm SHIFT SUPERINTENDENT CAUSTIC CRESYLATE Balloon Lot#[id number], 14.5F 19-cm Arrow Edge Catheter Lot#[id number] PROCEDURE/FINDINGS: The patient was brought to the interventional radiology suite where a timeout procedure was performed. The patient was placed in the supine position and the right upper chest and existing Palindrome dialysis catheter prepped and draped in a sterile fashion. The pre-procedure chest fluoroscopy showed the tip of the existing Vaxcel dialysis catheter is located at the proximal right atrium. Local anesthesia to the catheter exit site was administered. The catheter cuff was bluntly dissected free from the surrounding soft tissues. The port of the catheter was confirmed to be clogged. Heparin content in the existing catheter port was discarded. The existing catheter was pulled back until its tip was just within the accessed vein. Contrast was gently injected and a central venogram was performed. This showed fibrin sheath. The superior vena cava is patent. A stiff hydrophilic guidewire was introduced through the port of the catheter, and under fluoroscopy advanced across the right atrium into the inferior vena cava. The existing catheter was then removed over the guidewire in its entirety. Over the guidewire, a 12-mm diameter balloon was advanced and mechanical fibrin sheath disruption by inflation of the balloon was performed. A new 19-cm [tip to cuff] length, 14.5-Romanian double lumen Arrow Edge split tip dialysis catheter was advanced over the guidewire. Guidewire was removed. The catheter was secured at the skin exit site with 2-0 Prolene suture. There is free aspiration of blood from all ports of the catheter. The ports of the catheter were locked with heparin (concentration 1000 units/cc). A compression sterile dressing was then applied. Post procedure chest radiograph shows the tip of the new catheter is at the proximal right atrium. The patient tolerated the procedure well with no immediate complications. This procedure was performed with fluoroscopic guidance. Dr. Pleitez was present. IMPRESSION: Fibrin sheath disruption/maceration and Tunneled hemodialysis catheter change as discussed above. The new catheter is ready for use. cc: MD IRA Harris
--- NOTE | 2017-02-05 15:23 | REPKIM ---
CLINICAL HISTORY: Patient with a history of aspiration pneumonia and dysphagia has a 20F DEBBIE-GRIGGS gastrostomy tube because of inability to tolerate oral intake needing enteral support. The patient needs to have her feeding tube changed for routine maintenance. INTERVENTIONALIST: Abi Pleitez MD MEDIA CLERK: BRANDIE Quintero IV CONTRAST: 10 mL EBL: None DEVICE USED: 20-Bulgarian, stoma Length 3 cm, Low profile DEBBIE-GRIGGS gastrostomy tube Lot#[id number] FLUORO TIME: 0.3 minutes COMPLICATIONS: None immediate. CONSENT: The risks, benefits and alternatives to the procedure were explained to the patients sister in law and son (Gracie Munson and Jethro Navarrete Jr) and informed phone consent was obtained and witnessed. Technique: The patient was brought into interventional radiology suite where timeout was taken to verify the patient's identity and procedure. The abdomen and indwelling catheter was prepped and draped in usual sterile fashion. Contrast was injected into the existing 20F DEBBIE-GRIGGS indwelling tube shows its tip located in the stomach. The existing DEBBIE tube retention balloon was deflated then removed in its entirety, and exchanged for a new 20-Bulgarian DEBBIE-GRIGGS , 3cm stoma length, gastrostomy feeding tube. The retention balloon was inflated in the gastric lumen with saline. Contrast was injected into the gastric feeding tube to confirm satisfactory course and position. Post procedure radiograph shows the tip of the tube in the stomach. The patient tolerated the procedure well with no immediate complications. This procedure was performed using fluoroscopy. Dr. Pleitez was present. IMPRESSION: Successful gastrostomy tube change for routine maintenance as discussed above. Plan: 1. Flush the gastric port with 30 mL of water before/after each use. 2. The tube should be changed in 6 months as part of preventive maintenance. cc: Ramya Márquez MD [facility] CENTERAnita
== END | disposition home or self-care (01) ==
LOC: M IRPRO 08:16
PROVIDERS: ATTEND Internal Medicine Nephrology
DX: T82.49XA Other complication of vascular dialysis catheter, initial encounter (principal); N18.6 End stage renal disease; Z99.2 Dependence on renal dialysis
CPT/HCPCS: 36561; 36581; 36595; 75901; C1725; C1729; C1750; C1769; C1887; Q9967

== ENCOUNTER → 2017-02-18 | Outpatient (REF) | payer MEDICARE, MEDICAID ==
[~2017-02-18] MED LIST changes: -HEPARIN 1,000 UNITS/ML 10ML VIAL (FOR RADIOLOGY& DIALYSIS ONLY) As Ordered ONE; -ISOVUE-300 61% 50ML VIAL (Q9967) As Ordered ONE; -LIDOCAINE 2% MDV 20 ML VIAL As Ordered ONE; -LIDOCAINE W/EPINEPHRINE 1% 20ML VIAL As Ordered ONE; -SODIUM BICARBONATE 8.4% INJ 50MEQ 50 ML VIAL As Ordered ONE
[2017-02-18 11:14] LABS: MEAN CORPUSCULAR HEMOGLOBIN 32.2 pg (27.0-33.0); MEAN CORPUSCULAR HGB CONC 31.8 g/dl (32.0-36.5); MEAN CORPUSCULAR VOLUME 101.5 fl (80.0-96.0); RED CELL DISTRIBUTION WIDTH 17.1 % (11.5-14.5); WHITE BLOOD COUNT 11.2 K/mm3 (4.0-10.0)
[2017-02-18 11:30] LABS: CALCIUM LEVEL 10.2 MG/DL (8.8-10.2); CREATININE FOR GFR 4.1 MG/DL (0.55-1.02); GLOMERULAR FILTRATION RATE 11.4 (>39); POTASSIUM SERUM 4.1 MEQ/L (3.5-5.1)
== END ==
PROVIDERS: ATTEND Internal Medicine
DX: J44.9 Chronic obstructive pulmonary disease, unspecified (principal)

== ENCOUNTER 2017-03-17 01:41 | Inpatient (IN) | payer MEDICARE, MEDICAID ==
[~2017-03-17] VITALS: Ht 157.5 cm; Wt 65.1 kg
[2017-03-17] MEDS ORDERED: IPRATROPIUM/ PO (02:18)
[2017-03-17] MEDS ORDERED: DULC10SU2 PR (02:18)
[2017-03-17 02:52] LABS: BASO # 0.1 K/mm3 (0.0-0.2); BASO % 0.7 % (0.0-1.0); EOS # 0.3 K/mm3 (0.0-0.50); LARGE UNSTAINED CELL # 0.2 K/mm3 (0.0-0.4); LARGE UNSTAINED CELL % 1.9 % (0.0-4.0); LYMPH % 9.6 % (24.0-44.0); MEAN CORPUSCULAR HEMOGLOBIN 31.5 pg (27.0-33.0); MEAN CORPUSCULAR HGB CONC 31.7 g/dl (32.0-36.5); MEAN CORPUSCULAR VOLUME 99.4 fl (80.0-96.0); MONO # 0.7 K/mm3 (0.0-0.8); MONO % 7.8 % (0.0-5.0); NEUTROPHILS # 6.9 K/mm3 (1.8-7.7); NEUTROPHILS % 76.8 % (36.0-66.0); PLATELET COUNT, AUTOMATED 191 k/mm3 (150-450); RED CELL DISTRIBUTION WIDTH 17.2 % (11.5-14.5)
[2017-03-17 03:00] LABS: CALCIUM LEVEL 9.7 MG/DL (8.8-10.2); GLOMERULAR FILTRATION RATE 7.3 (>39); POTASSIUM SERUM 4.6 MEQ/L (3.5-5.1)
[2017-03-17] MEDS: IPRATROPIUM 0.5MG/ALBUTEROL 2.5MG INH SOL UD 3ML (DUONEB)(J7620) NEB SCH ×5 (04:03→20:12)
[2017-03-17] MEDS ORDERED: ISOVUE-370 76% 100ML VIAL (Q9967) As Ordered ONE (04:04)
[2017-03-17 04:25] LABS: ABG BASE EXCESS 1.3 (-2.0-2.0); ABG HCO3 26.7 MEQ/L (22.0-26.0); ABG PARTIAL PRESSURE CO2 45.8 mmHg (35.0-45.0); ABG PARTIAL PRESSURE O2 199.2 mmHg (75.0-100.0); ABG STANDARD HCO3 25.7 MEQ/L (22.0-26.0); ABG TOTAL CO2 28.1 MEQ/L (23.0-31.0); ABG pH (ARTERIAL) 7.384 UNITS (7.350-7.450)
--- NOTE | 2017-03-17 05:40 | REPUSA ---
CLINICAL HISTORY: Dyspnea, exclude PE. TECHNIQUE: Multiple incremental axial, coronal and oblique images are obtained from the thoracic inle t to the upper abdomen. Intravenous contrast material was administered as per pulmonary embolism prot ocol. COMMENTS: There is excellent opacification of pulmonary arterial system without evidence for pulmonary embolism . Aorta is of normal caliber without evidence for dissection or aneurysm. Enlarged main pulmonary art pilar suggestive of pulmonary hypertension. Moderate cardiomegaly. Multifocal air trapping in the lungs . Mild bilateral basilar groundglass densities. Airspace consolidation in the left lower lobe. There is no evidence of pleural or parenchymal mass. There are no pleural effusions. There is no evid ence of hilar or mediastinal lymphadenopathy. The heart and great vessels are within normal limits. Images of the upper abdomen demonstrate no evidence of adrenal mass. The bony structures are free of lytic or blastic lesions. Multilevel degenerative changes are seen in volving the visualized thoracolumbar spine. Scattered calcifications are seen involving the aorta and major branches compatible with atherosclero sis. IMPRESSION: No evidence for pulmonary embolism. Cardiomegaly. Pulmonary hypertension. Airspace consolidation in the left lower lobe. Multifocal air trapping in the lungs. Bilateral pulmonary ground glass densities. Thank you for your kind referral of this patient.
[2017-03-17] MEDS ORDERED: IMIPENEM/CILASTATIN 500 MG in D5W MINI-BAG PLUS 100 ML IV ONE (06:15)
[2017-03-17] MEDS ORDERED: IPRASOL4 INH (06:49)
[2017-03-17] MEDS ORDERED: IPRATROPIUM 0.5MG/ALBUTEROL 2.5MG INH SOL UD 3ML (DUONEB)(J7620) INH SCH (08:00)
[2017-03-17] MEDS: MIDODRINE 5 MG TAB PEG SCH ×3 (08:00→18:56)
[2017-03-17] MEDS ORDERED: MORPHINE 2 MG/ML 1ML SYRINGE IV PRN (08:15)
[2017-03-17] MEDS ORDERED: ONDANSETRON 4MG/2ML VIAL (J2405) IV PRN (08:15)
[2017-03-17] MEDS ORDERED: ACETAMINOPHEN TAB 650MG DOSE (2X325MG) PO PRN (08:15)
[2017-03-17] MEDS ORDERED: BISACODYL 5 MG TAB PO PRN (08:15)
[2017-03-17] MEDS ORDERED: FLEET ENEMA PR PRN (08:30)
[2017-03-17] MEDS ORDERED: IPRATROPIUM 0.5MG/ALBUTEROL 2.5MG INH SOL UD 3ML (DUONEB)(J7620) NEB PRN (08:30)
--- NOTE | 2017-03-17 08:48 | REP ---
Portable chest: Single view. History: Dyspnea and cough. Comparison study: January 12, 2017. Findings: A tunneled catheter is seen via the right internal jugular vein with its tip in the expected location of the superior vena cava. EKG monitoring electrodes overlie the chest. There is mild cardiomegaly again noted unchanged. Pulmonary vasculature is cephalized. Pleural angles are sharp. There is no evidence of pulmonary edema. Impression: Cardiomegaly and pulmonary vascular cephalization. Right central line. No significant change. No pleural effusion or acute pulmonary edema seen. Signed by Yoshi Day MD 03/17/2017 12:17 P
[2017-03-17] MEDS: POLYVINYL ALCOHOL OPHTH SOLN 15 ML(LIQUITEARS) OU SCH ×4 (09:00→21:56)
[2017-03-17] MEDS: HEPARIN SOD (PORCINE) 5000 UNITS/ML VIAL SQ SCH ×2 (09:00→21:55)
[2017-03-17] MEDS ORDERED: LevoFLOXacin IV 500 MG in APPROPRIATE DILUENT 1 EA IV SCH (09:00)
[2017-03-17] MEDS: CINACALCET 30 MG TAB (SENSIPAR) PEG SCH ×2 (09:00→18:55)
[2017-03-17] MEDS: methylPREDNISolone INJ 125 MG/2 ML VIAL (J2930) IV SCH ×2 (09:00→18:57)
[2017-03-17] MEDS ORDERED: VANCOMYCIN HCL 750 MG, VIAL MATE ADAPTER 1 EACH in D5W 250 ML IV SCH (09:00)
[2017-03-17] MEDS: METOCLOPRAMIDE HCL LIQUID 10 MG/10 ML UDC PEG SCH ×2 (09:00→18:56)
[2017-03-17] MEDS: PANTOPRAZOLE 40MG INJ (PROTONIX) (C9113) IV SCH (09:00)
[2017-03-17] MEDS: LEVOTHYROXINE 0.125 MG TAB (125 MCG) PO SCH ×2 (11:00→18:56)
--- NOTE | 2017-03-17 11:09 | HPE ---
DATE OF ADMISSION: 03/17/2017 PRIMARY CARE PHYSICIAN: Heather Childers DO CODE STATUS: DO NOT RESUSCITATE, DO NOT INTUBATE. CHIEF COMPLAINT: Dyspnea and wheezing. HISTORY OF PRESENT ILLNESS: Ms. Navarrete is a 70-year-old female with multiple past medical history who was transferred from [facility] where she was reported to be tachypneic and wheezing, as well as shortness of breath. According to documentation, the patient has chronic obstructive pulmonary disease (COPD) and is on 2 liters of oxygen at baseline. However, according to the report from the nursing staff, the patients required oxygenation has increased this morning. The patient has dementia and is severely deaf, and therefore it is very difficulty and the patient cannot provide history. She has been in the hospital frequently due to dyspnea. The patient denies fever, chills, night sweats and weight loss. Patient also denies increase of coughing, vomiting, nausea, or recent sick contacts. The patient's healthcare proxy is Desmond Navarrete. PAST MEDICAL HISTORY: 1. End stage renal disease with hemodialysis on Friday, Friday, and Friday. 2. Diastolic congestive heart failure (CHF). 3. Chronic obstructive pulmonary disease (COPD) on 2 liters of oxygen at baseline. 4. Mild mental retardation. 5. Dementia. 6. Aspiration status post percutaneous endoscopy, gastrotomy (PEG) tube. 7. Severely deaf. 8. Seizure disorder. 9. Recurrent gastrointestinal (GI) bleeds in the past. 10. Hypothyroidism. 11. Osteoarthritis (OA). PAST SURGICAL HISTORY: 1. PEG tube replacement. 2. Catheter insertion. 3. Pericardial window. ALLERGIES: 1. PENICILLIN. 2. PENICILLIN CROSS REACTORS. 3. ACETAMINOPHEN. SOCIAL HISTORY: Patient lives in [facility]. According to previous documentation, the patient did not have history of alcohol or illicit drug use. Patient also did not have history of tobacco use. FAMILY HISTORY: At this time, no information available for the family history. The patient cannot provide this information due to dementia and mental retardation. HOME MEDICATIONS: - ipratropium bromide/albuterol 0.5-2.5 one solution inhaler four times a day - aqua tears 2 drops both eyes (OU) four times a day - Dulcolax 10 mg as needed daily as needed constipation - calcitonin 200 units NA daily - Sensipar 30 mg PEG daily - folic acid 1 mg PEG daily - Synthroid 125 mcg by mouth daily - Reglan 5 mg PEG daily - midodrine 10 mg PEG three times a day - Nepro with Carb Steady 200 mL PEG four times a day - potassium chloride 10 mEq PEG daily - senna two caps PEG at bedtime - sevelamer carbonate 2.4 gm PEG daily - Zocor 20 mg at bedtime - sodium chloride one dose NA at bedtime - sodium phosphate/bisphosphate one linus IN daily as needed for constipation - mark-bee one tab PEG daily REVIEW OF SYSTEMS: The review of systems cannot accurately be obtained due to the patient's dementia and mild mental retardation; however, it was negative other than history of present illness. PHYSICAL EXAMINATION: VITAL SIGNS: Temperature 97.6, pulse 65, respiratory rate 24, blood pressure 111/53, pulse oximetry 96% on 2 liters nasal cannula. GENERAL APPEARANCE: The patient was lying in bed in no acute distress. The patient was awake, but not oriented to time, place and person. HEENT: Normocephalic, atraumatic. Pupils are equal and reactive to light. Oral mucosa is moist. Patient is severely deaf. NECK: Soft, supple. No lymphadenopathy. No thyromegaly. No jugular venous distention (JVD). HEART: Regular rate and rhythm. Normal S1 and S2. No murmur or gallop was appreciated. RESPIRATORY: The patient has bilateral exhale and inhale wheezing as well as mild decrease of breath sounds in the left lower lobe and scattered rhonchi at the base of the lung. ABDOMEN: Obese. Patient has a PEG tube in the mid abdominal quandrant. Positive bowel sounds in all quadrants. No tenderness or guarding to palpation. EXTREMITIES: Patient has pitting edema in both lower extremities. +2 pulses in both lower extremities. Feet were warm. Strength and range of motion cannot be evaluated due to the patient not following commands. NEURO: Neurological exam cannot be obtained due to patient's mental retardation and dementia. LABORATORY DATA: White blood cells 9, red blood cells 3.22, hemoglobin 10.1, hematocrit 32, MCV 99.4, MCH 31.5, MCHC 31.7, RDW 17.2, platelet count 191, neutrophil percentage 76.8, lymphocyte percentage 9.6, monocyte percentage 7.8, eosinophil percentage 3, basophil percentage 0.7, leukocyte percentage 1.9. ABG bicarbonate 25.7, ABG pH 7.384, ABG pCO2 45.8, ABG pO2 199.2, ABG HCO3 36.7, ABG total CO2 28.1, ABG oxygen saturation 99.7, ABG base excess 1.3, and D-Dimer 3030.1. Sodium 131, potassium 4.6, chloride 94, carbon dioxide 25, anion gap 12, BUN 60, creatinine 0.6, glomerular filtration rate (GFR) 7.3, fasting glucose 93, lactic acid 1.1, calcium 9.7, total creatinine kinase 92, CK-MB 1.7, CK-MB rel index 1.84, Troponin I 0.05, C-reactive protein 1.91, and BNP 1810. IMAGING: Chest x-ray shows cardiomegaly and pulmonary vascular encephalization right central line. No significant changes. No pleural effusion or cardiopulmonary edema seen. CT angio of the chest which shows no evidence of pulmonary embolism, cardiomegaly, pulmonary hypertension, air space consolidations in the left lower lobe, multifocal air trapping in the lung, or bilateral ground glass densities. ASSESSMENT/PLAN: 1. Dyspnea. This could be secondary to diastolic congestive heart failure (CHF) decompensation with pulmonary edema versus healthcare acquired pneumonia and less likely chronic obstructive pulmonary disease (COPD) exacerbation. The patient received breathing treatments at the ER. At this time, lab work indicated normal range white blood cells. The patient is afebrile, however we have ordered C-reactive protein which is elevated. Due to the possibility of healthcare acquired pneumonia, we have started the patient on vancomycin and Levaquin. The patient is a dialysis patient and the patient is scheduled to have hemodialysis today. I have consulted Dr. Barrera, and appreciate Dr. Barrera's recommendations. Also we will continue the patient on breathing treatments as well as Solu-Medrol and we are waiting for the results for the sputum culture as well as the blood cultures, which are pending at this time. 2. COPD exacerbation. This is possibly less likely; however, I have started the patient on Solu-Medrol. Patient is on breathing treatments. Chest x-ray did not show any new findings, however, CT angio was positive for possible airspace consolidation in the left lower lobe. We will continue the patient with oxygen saturation 88-92%. 3. End stage renal disease. Dr. Barrera has been consulted. Patient receiving dialysis on Friday, Friday, and Friday and today is the patient's dialysis day. 4. Aspiration. The patient has a history of aspiration and at this time, the patient has a PEG tube. The patient is on Nepro 200 mL four times a day. At this time, the patient is on IV Protonix. 5. Severe deafness. This is a chronic issue. At this time, we will continue to monitor the patient for any abnormal symptoms. 6. Mild mental retardation. This is a chronic issue. 7. Dementia. This is a chronic issue. 8. Severely deaf. communication, it required to speak to the patient directly with a loud voice. 9. Secondary hyperparathyroidism. Patient is on Remeron and calcitonin. 10. Hypothyroidism. Patient is on Synthroid. 11. Deep vein thrombosis (DVT) prophylaxis. Patient is on heparin every 12 hours. 12. Chronic hypotension. Patient is on midodrine. 13. Dyslipidemia. Patient is on a statin. 14. Dry eyes. Patient is on artificial tears. 15. Osteoarthritis (OA). Patient is stable at this time. This is a chronic issue. My preceptor for this patient encounter was Dr. Lani Justin. The preceptor was physically present in the building during the encounter and was fully available. As needed, all aspects of the patient interview, examination, medical decision making process, and medical care plan development were reviewed and approved by the preceptor. The preceptor is aware and concurs with the plan as stated in the body of this note and will attest to such by his/her cosignature.
[2017-03-17] MEDS ORDERED: DARBEPOETIN 100 MCG/0.5 ML *DIALYSIS* SYRINGE (J0882) IV SCH (11:15)
[2017-03-17] MEDS ORDERED: VANCOMYCIN HCL 1,000 MG, VIAL MATE ADAPTER 1 EACH in D5W 250 ML IV SCH ×2 (11:45→15:15)
[2017-03-17] MEDS ORDERED: HEPARIN 1,000 UNITS/ML 10ML VIAL (FOR RADIOLOGY& DIALYSIS ONLY) IV ONE (11:45)
[2017-03-17] MEDS: POTASSIUM CHLORIDE 10% LIQ 20 MEQ/15 ML UDC PEG SCH (12:00)
[2017-03-17] MEDS: FOLIC ACID 1 MG TAB PEG SCH (12:00)
--- NOTE | 2017-03-17 15:09 | PHACANCOPD ---
PHARMACY VANCOMYCIN DOSING Pt Demographics Demographics Patient Age:71 , Weight: , Gender: female Adjusted Body Weight Date: 03/17/17, Adjusted Body Weight: Kg Events Past 24 Hours Events Past 24 Hours: YES: Dialysis, NO: Diuretic Therapy, Change in CrCl, Fever, Elevation in WBC, Pending Diagnostics, Pending Procedures, Other Vancomycin Vancomycin indication: Possible HCAP Vancomycin Target Ranges: 15-20 mcg/ml Vancomycin Load Y/N: No Load Dose Date Time Vancomycin Load Dose: Date: Time: Vancomycin Dose Date: 03/17/17. Current Vancomycin Dose: [1G IV qMWF after HD] Intermittent Dosing?: Yes Labs Labs Vital Signs Label Value Date Time Patient Temperature 96.9 degrees F 03/17/17 09 Temperature Source Oral 03/17/17919 Item Value Date Time White Blood Count 9.0 K/mm3 03/17/17 0200 Creatinine 6.00 MG/DL H 03/17/17 0200 C-Reactive Protein, Quantitative 1.91 MG/DL H 03/17/17 0200 Micro Microbiology 03/17/17 Blood Culture, Received Pending 03/17/17 Blood Culture, Received Pending Creatinine Clearance Date:03/17/17. Creatinine Clearance: . Assessment and Plan Maintaining Current Dose?: Yes Reason for dose change: No Dose Change Pharmacist Note Pharmacist Note Date: 03/17/17. Pharmacist note: Pt is a 71 year old female who was transferred to the ED from [facility] where she was tachypneic, wheezing , and SOB. Pt has a hx of ESRD, CHF, COPD, dementia, severely deaf and has a PEG tube. Pt is on 2 liters of O2 at baseline, however staff had to increase oxygenation this AM. Pt. denies fever, chills, etc. Pt has a history of Vancomycin and MRSA at [facility]. We are treating pt for potential HCAP with IV Levo and IV Vanco. Pt will receive 1G IV on days of HD (MWF). We will continue to monitor and change dose as necessary. MARYURI MENON PHARMACY March 17, 2017 15:09
[2017-03-17 16:00] VITALS: BP 131/63
[2017-03-17] MEDS: CHECK TO SEE IF PATIENT IS RECEIVING DIALYSIS TODAY AND REFER TO THE VANCOMYCIN ORDER XX SCH (16:00)
[2017-03-17 18:00] VITALS: BP 122/69
[2017-03-17] MEDS ORDERED: VANCOMYCIN HCL 1,000 MG, VIAL MATE ADAPTER 1 EACH in D5W 250 ML IV ONE (18:45)
--- NOTE | 2017-03-17 18:50 | CR ---
DATE OF CONSULTATION: 03/17/2017 REQUESTING PHYSICIAN: Dr. Lani Justin REASON FOR CONSULTATION: Management of end-stage renal disease , hemodialysis, and possible fluid overload. CHIEF COMPLAINT: The patient presented to the emergency room last night because of progression shortness of breath. HISTORY OF PRESENT ILLNESS: Nneka Navarrete is a 71-year-old female with past medical history of end-stage renal disease on hemodialysis every Friday, Friday and Friday. She is a resident of [facility]. She has multiple comorbidities. She is dependent on percutaneous endoscopic gastrostomy (PEG) tube feeds and she has a history of diastolic congestive heart failure. Other comorbidities are mentioned below. She was sent to the emergency room last night because of progressive shortness of breath. She has not missed any dialysis sessions, last hemodialysis session was two days ago on Friday. She was requiring more and more oxygen and even on 4 liters of oxygen her oxygen saturations (O2 sats) were in the 80s. Initial evaluation in the emergency room showed pulmonary vascular congestion on the x-rays and possible infiltrate on the left lower lobe. The patient was started on intravenous (IV) antibiotics for possible aspiration of the tube feeds but she clinically looked like she was in fluid overload as well. Nephrology consultation was requested for further management of end-stage renal disease and hemodialysis, today is the patient's regular day of dialysis. PAST MEDICAL HISTORY: 1. End-stage renal disease on dialysis every Friday, Friday and Friday. 2. Chronic pulmonary obstructive disease (COPD). 3. History of coronary artery disease. 4. Diastolic congestive heart failure. 5. Dementia and mental retardation. 6. Mitral regurgitation. 7. History of atrial fibrillation (A-fib). 8. Hypothyroidism. 9. Seizure disorder. 10. Severe degenerative arthritis and inability to ambulate. She is chronically bedridden. 11. History of recurrent aspiration pneumonitis in the past because of tube feedings. 12. History of anemia secondary to chronic kidney disease. 13. History of methicillin resistant Staphylococcus aureus (MRSA) bacteremia in the past. PAST SURGICAL HISTORY: Status post PEG tube placement. ALLERGIES: The patient is allergic to PENICILLINS and TYLENOL. FAMILY HISTORY No significant family history of end-stage renal disease requiring hemodialysis. SOCIAL HISTORY: The patient is a resident of the [facility]. There is of elicit drug abuse, alcohol or smoking. REVIEW OF SYSTEMS: CONSTITUTIONAL: The patient denies any fever, chills, or rigors. HEENT: Eyes: She denies any blurring vision or double vision. ENT: She denies any dysphagia, odynophagia or ear discharge. CARDIOVASCULAR: The patient denies any chest pain or palpitations. RESPIRATORY: The patient reports shortness of breath. She denies any cough or phlegm. GASTROINTESTINAL (GI): The patient reports history of PEG tube. She denies any pain in the abdomen, constipation or diarrhea. GENITOURINARY: The patient denies any dysuria or hematuria. MUSCULOSKELETAL: The patient reports arthritis and inability to ambulate. She is chronically bedridden. CENTRAL NERVOUS SYSTEM (APPEALS EXAMINER): The patient has history of mental retardation but she is able to communicate; otherwise she denies any history of seizures. PSYCHIATRIC: She denies any history of depression or anxiety. HEMATOLOGICAL/ONCOLOGICAL: There is history of anemia secondary to end-stage renal disease. ENDOCRINE: She has history of secondary hyperparathyroidism and hypothyroidism. CARE HOME MEDICATIONS: - DuoNebs four times a day - Artificial Tears - Dulcolax 10 mg per rectum daily as needed for constipation - calcitonin 200 units nasally daily - Sensipar 30 mg via PEG daily - folic acid 1 mg via Peg daily - levothyroxine 125 mcg by mouth daily - metoclopramide 5 mg via PEG twice daily - Midodrine 10 mg via PEG three times daily - Nepro 240 mL via PEG four times a day - potassium chloride 10 mEq via PEG daily - Senna two capsules via PEG nightly - Renvela 2.4 gram via PEG daily at noontime - Zocor 20 mg via PEG nightly - Fleets Enema as needed for constipation - multivitamin one tablet via PEG daily PHYSICAL EXAMINATION: GENERAL: The patient is awake, alert, and oriented times two, laying in bed in mild respiratory distress. VITAL SIGNS: Temperature 96.9 degrees Fahrenheit, blood pressure 112/64, pulse 53, respiratory rate 28, saturating 100% on nasal cannula at 2 liters. Intake and output, in and output is not recorded. HEAD AND NECK: Extraocular muscles intact. Pupils equal, round, and reactive to light. The patient has bilateral pseudophakia. Moist mucous membranes. Neck is supple. There is mildly elevated jugular venous distention (JVD) CARDIOVASCULAR: S1, S2, regular rate, no murmurs, rubs, gallops. RESPIRATORY: Decreased breath sounds at the bases and some crepitations at the bases on deep inspiration. The patient has grunting as well. GI: Abdomen is soft. The patient has a PEG tube in the epigastrium. There is no tenderness, bowel sounds are positive. EXTREMITIES: No clubbing or cyanosis. The patient has trace edema of the bilateral lower extremities. CENTRAL NERVOUS SYSTEM (APPEALS EXAMINER): The patient is able to communicate. She follows commands. Power is 5/5 in bilateral upper extremities. PSYCHIATRIC: Normal mood and affect. LABORATORY REVIEW: CBC showed WBC of 9, hemoglobin 10.1, platelets 191, d-Dimer 3000. Arterial blood gas (ABG) done this morning showed pH 7.38, PCO2 45, PO2 199, bicarbonate 26.7, O2 sat 99.7. BMP shows sodium 131, potassium 4.6, chloride 94, bicarbonate 25, BUN 60, creatinine 6, GFR 7.3, lactic acid is 1.1, troponin is 0.05. C-reative protein is 1.9, BNP 1,810. MICROBIOLOGY: Blood cultures are pending. IMAGING: CT angiogram of the chest was done because of shortness of breath and elevated D-Dimer. It showed no evidence of pulmonary embolism. There was cardiomegaly, pulmonary hypertension, space consolidation at the left lower lobe , multifocal air trapping in the lungs and bilateral pulmonary ground-glass densities. CURRENT INPATIENT MEDICATIONS: - patient has been started on imipenem 500 mg intravenous one dose - Levaquin 500 mg every 24 hourly - vancomycin 750 mg every 12 hourly - DuoNebs taken as needed - Dulcolax as needed - calcitonin one nasal spray daily - Sensipar 30 mg via PEG daily - folic acid 1 mg daily - heparin subcutaneous - levothyroxine 125 mcg by mouth daily - Solu-Medrol 60 mg IV every eight hours - Reglan 5 mg via PEG twice daily - Midodrine 10 mg via PEG three times a day - morphine 2 mg IV every 12 hours as needed for severe pain - Zofran 4 mg IV every 6 hours as needed for nausea - Protonix 40 mg every 24 hours - potassium chloride 10 mEq via PEG daily - Senna two tablets via PEG - simvastatin 20 mg via PEG nightly - Fleet's enema as needed ASSESSMENT: This is a 71-year-old female with past medical history of end-stage renal disease on hemodialysis admitted this time because of fluid overload and possible aspiration pneumonia. PLAN: 1. End-stage renal disease on hemodialysis. Today is the patient's regular hemodialysis day. Gentle hemodialysis was arranged. We shall try to do hemodialysis for three hours today and try to do ultrafiltration of about 3 kg as tolerated by her blood pressure. 2. Fluid overload. The patient's last hemodialysis session was two days ago. It is likely that she might be fluid overloaded at this time. There is cephalization of blood vessels on the chest x-ray. As mentioned above, the patient will get 3 liters of ultrafiltration with hemodialysis that would help improve the fluid overload. 3. Infiltrate on CAT scan and possible aspiration pneumonitis. The patient has percutaneous endoscopic gastrostomy (PEG) feeds at this time. She has already been started on vancomycin, Imipenem and Levaquin. I would adjust the dose of antibiotics according to the renal function. 4. Secondary hyperparathyroidism. Continue current dose of Sensipar 30 mg via PEG daily. 5. Anemia and end-stage renal disease. Hemoglobin is 10.1 today, I would give her a dose of Aranesp with hemodialysis. 6. Hyponatremia. It is likely secondary to end-stage renal disease and volume overload. Hemodialysis and ultrafiltration would help improve hyponatremia. 7. Chronic hypotension. Continue new current dose of Midodrine 10 mg by mouth three times a day. 8. Chronic pulmonary obstructive disease. The patient has been started on antibiotics, IV Solu-Medrol and she is on nebulizations. The rest of the management is as per her primary team. Thank you for involving us in the care of this patient. We shall be happy to follow the patient along with you tomorrow morning. The patient's urgent dialysis was arranged and she is being dialyzed at this time. cc: MD IRA Guillermo
[2017-03-17 20:00] VITALS: BP 143/68
[2017-03-17] MEDS: LevoFLOXacin IV 500 MG in APPROPRIATE DILUENT 1 EA IV SCH (20:06)
[2017-03-17 20:13] VITALS: O2SAT 98
[2017-03-17] MEDS: CALCITONIN NASAL SPRAY 3.7 ML BTL SCH (20:51)
--- NOTE | 2017-03-17 21:04 | ECGEPIP ---
Stationary ECG Study [facility] - ED Test Date: 2017-03-17 Pat Name: TAI ISAACS Department: Room: - Gender: F Billing Supervisor: julio : 1945 Requested By: CHIARA Howard Order Number: [id number] Reading MD: Junior Bhatt Measurements Intervals [place] Rate: 68 P: 96 TN: 192 QRS: -21 QRSD: 94 T: 8 QT: 446 QTc: 477 Interpretive Statements SINUS RHYTHM BORDERLINE LEFT AXIS DEVIATION LOW QRS VOLTAGE IN PRECORDIAL LEADS ST T WAVE CHANGES ANTEROSEPTAL LEADS - NONSPECIFIC VS ISCHEMIA PROLONGED QTC - BORDERLINE CW 01/13/17 - RATE INCREASED ST T WAVE CHANGES ANTEROSEPTAL LEADS - RULE OUT ISCHEMIA CLINICALLY CORRELATE Electronically Signed On 03-17-2017 21:03:59 EDT by Junior Bhatt
[2017-03-17] MEDS: SODIUM CHLORIDE 0.9% NASAL GEL 15MG (AYR) SCH (21:55)
[2017-03-17] MEDS: SIMVASTATIN 20 MG TAB PEG SCH (21:56)
[2017-03-17] MEDS: SENNA 8.6 MG TAB (SENOKOT) PEG SCH (21:56)
[2017-03-18] VITALS: BP 120/67
[2017-03-18] MEDS: methylPREDNISolone INJ 125 MG/2 ML VIAL (J2930) IV SCH ×2 (00:50→08:26)
[2017-03-18] MEDS: IPRATROPIUM 0.5MG/ALBUTEROL 2.5MG INH SOL UD 3ML (DUONEB)(J7620) NEB SCH ×4 (01:53→19:59)
[2017-03-18 04:00] VITALS: BP 120/65
[2017-03-18 06:10] LABS: BASO % 0.2 % (0.0-1.0); EOS # 0.1 K/mm3 (0.0-0.50); EOS % 1.4 % (0.0-3.0); LARGE UNSTAINED CELL % 0.3 % (0.0-4.0); LYMPH # 0.4 K/mm3 (1.5-4.5); MEAN CORPUSCULAR HGB CONC 31.5 g/dl (32.0-36.5); MEAN CORPUSCULAR VOLUME 101.6 fl (80.0-96.0); MONO # 0.1 K/mm3 (0.0-0.8); NEUTROPHILS # 8.1 K/mm3 (1.8-7.7); NEUTROPHILS % 93.1 % (36.0-66.0); PLATELET COUNT, AUTOMATED 209 k/mm3 (150-450); RED CELL DISTRIBUTION WIDTH 17.3 % (11.5-14.5); WHITE BLOOD COUNT 8.6 K/mm3 (4.0-10.0)
[2017-03-18 06:33] LABS: ALBUMIN 3.5 GM/DL (3.2-5.2); ALBUMIN/GLOBULIN RATIO 0.95 (1.00-1.93); BILIRUBIN,TOTAL 0.5 MG/DL (0.2-1.0); CALCIUM LEVEL 9.3 MG/DL (8.8-10.2); CREATININE FOR GFR 3.61 MG/DL (0.55-1.02); GLOMERULAR FILTRATION RATE 13.2 (>39); MAGNESIUM LEVEL 2.8 MG/DL (1.8-2.4); POTASSIUM SERUM 4.3 MEQ/L (3.5-5.1); TOTAL PROTEIN 7.2 GM/DL (6.4-8.2)
[2017-03-18 07:15] VITALS: BP 120/65
[2017-03-18] MEDS: MIDODRINE 5 MG TAB PEG SCH ×3 (08:24→16:51)
[2017-03-18] MEDS: PANTOPRAZOLE 40MG INJ (PROTONIX) (C9113) IV SCH (08:25)
[2017-03-18] MEDS: HEPARIN SOD (PORCINE) 5000 UNITS/ML VIAL SQ SCH ×2 (08:25→20:34)
[2017-03-18] MEDS: POLYVINYL ALCOHOL OPHTH SOLN 15 ML(LIQUITEARS) OU SCH ×4 (08:26→20:48)
[2017-03-18] MEDS: METOCLOPRAMIDE HCL LIQUID 10 MG/10 ML UDC PEG SCH ×2 (08:26→20:48)
[2017-03-18 11:10] VITALS: BP 126/61
--- NOTE | 2017-03-18 12:25 | IPN ---
DATE OF SERVICE: 03/18/2017 SUBJECTIVE: Patient was seen and examined at the bedside today in the morning. She feels much better. She is asymptomatic at that time. She is not in any respiratory distress. Patient got hemodialysis done yesterday. She tolerated ultrafiltration of 3 liters. REVIEW OF SYSTEMS: Patient denies any fever, chills, rigors, headache, nausea, vomiting, chest pain or shortness of breath. Rest of review of system is negative. OBJECTIVE: VITAL SIGNS: Temperature is 98.2 degrees Fahrenheit. Blood pressure is 120/65. Pulse is 79. Respiratory rate of 18. Saturating 96% on nasal cannula. INTAKE AND OUTPUT: Urine output is not recorded. She got hemodialysis done yesterday. Ultrafiltration was 3 liters. Weight on the bed scale is 56.1 kg today. PHYSICAL EXAMINATION: GENERAL: Patient is awake, alert, oriented times one, laying in bed, no apparent distress. HEAD AND NECK: Extraocular muscles intact. Pupils equally round and reactive to light. Mucous membranes are moist. Neck is supple. There is no jugular venous distention (JVD). CARDIOVASCULAR: S1, S2, regular rate. No murmur, rub or gallop. RESPIRATORY: Bilateral good air entry. Patient has mild expiratory rhonchi at the bases. ABDOMEN: Is soft. She has a percutaneous endoscopic gastrostomy (PEG) tube in the epigastrium. There is no tenderness. Bowel sounds are positive. EXTREMITIES: No clubbing or cyanosis. She has trace edema of the bilateral lower extremities. CENTRAL NERVOUS SYSTEM (VOLUNTEER MANAGER): Patient is able to follow commands. She tries to communicate with simple one worded answers. She is otherwise oriented times one. LABORATORY REVIEW: CBC showed a WBC 8.6, hemoglobin 11.1, platelets of 209. BMP showed sodium 133, potassium 4.3, chloride 95, bicarbonate 28. BUN is 33, creatinine is 3.6. Albumin is 3.5. IMAGING: No new imaging available today. CURRENT MEDICATIONS: Patient's medications were all reviewed by me. She continues to be on IV Levaquin and IV vancomycin every hemodialysis. There is no other changes of medications today as compared with yesterday. ASSESSMENT: 71-year-old female with past medical history of end-stage renal disease on hemodialysis admitted this time because of shortness of breath secondary to fluid overload and possible aspiration pneumonia. PLAN: 1. End-stage renal disease on hemodialysis. Patient's regular dialysis days are Friday, Friday, Friday. She was dialyzed yesterday, 3 liter of ultrafiltration done. Patient is stable at this time. No need of ultrafiltration today. Patient will dialyzed tomorrow according to her regular schedule. 2. Fluid overload. Patient's fluid status was optimized with ultrafiltration during hemodialysis yesterday. She is euvolemic at this time. Further ultrafiltration will be done during hemodialysis tomorrow morning. 3. Possible aspiration pneumonitis. Patient has tube feeds. She history of MRSA infection in the past as well. Currently, primary team and pharmacology are managing her dose of Levaquin and vancomycin. Dosing duration of antibiotics is as per primary team. 4. Anemia and end-stage renal disease. Patient's hemoglobin is stable at 11.1. Continue to monitor for now. 5. Hyponatremia. It is secondary to end-stage renal disease and fluid overload. There is an improvement in the sodium from 130 to 133 today. Ultrafiltration with hemodialysis tomorrow would help improve sodium as well. 6. Chronic obstructive pulmonary disease (COPD). I still hear some rhonchi on physical exam. Patient is currently on nebulizations and IV steroids. Continue the steroids and nebulization. Tapering dose of steroid is as per primary team.
[2017-03-18] MEDS: FOLIC ACID 1 MG TAB PEG SCH (12:26)
[2017-03-18] MEDS: POTASSIUM CHLORIDE 10% LIQ 20 MEQ/15 ML UDC PEG SCH (12:26)
[2017-03-18 14:00] VITALS: BP 143/63
[2017-03-18] MEDS: CALCITONIN NASAL SPRAY 3.7 ML BTL SCH (16:51)
[2017-03-18] MEDS: predniSONE 20 MG TAB PO SCH (16:51)
[2017-03-18] MEDS: SENNA 8.6 MG TAB (SENOKOT) PEG SCH (20:33)
[2017-03-18] MEDS: SIMVASTATIN 20 MG TAB PEG SCH (20:33)
[2017-03-18] MEDS: SODIUM CHLORIDE 0.9% NASAL GEL 15MG (AYR) SCH (20:48)
[2017-03-18 22:00] VITALS: BP 132/64
[2017-03-19] MEDS: IPRATROPIUM 0.5MG/ALBUTEROL 2.5MG INH SOL UD 3ML (DUONEB)(J7620) NEB SCH ×4 (01:56→21:09)
[2017-03-19] MEDS: MIDODRINE 5 MG TAB PEG SCH ×2 (05:08→16:59)
[2017-03-19] MEDS: CINACALCET 30 MG TAB (SENSIPAR) PEG SCH (05:08)
[2017-03-19] MEDS: POLYVINYL ALCOHOL OPHTH SOLN 15 ML(LIQUITEARS) OU SCH ×4 (05:09→21:58)
[2017-03-19] MEDS: predniSONE 20 MG TAB PO SCH (05:09)
[2017-03-19] MEDS: HEPARIN SOD (PORCINE) 5000 UNITS/ML VIAL SQ SCH ×2 (05:23→21:58)
[2017-03-19 06:00] VITALS: BP 104/59
[2017-03-19 06:16] LABS: ALBUMIN 3.3 GM/DL (3.2-5.2); ALBUMIN/GLOBULIN RATIO 0.8 (1.00-1.93); BILIRUBIN,TOTAL 0.4 MG/DL (0.2-1.0); CALCIUM LEVEL 9.6 MG/DL (8.8-10.2); CREATININE FOR GFR 5.23 MG/DL (0.55-1.02); GLOMERULAR FILTRATION RATE 8.6 (>39); MAGNESIUM LEVEL 2.9 MG/DL (1.8-2.4); POTASSIUM SERUM 4.6 MEQ/L (3.5-5.1); TOTAL PROTEIN 7.4 GM/DL (6.4-8.2); VANCOMYCIN RANDOM 18.3 UG/ML
[2017-03-19] MEDS: PANTOPRAZOLE 40MG INJ (PROTONIX) (C9113) IV SCH (06:20)
[2017-03-19 06:35] LABS: MEAN CORPUSCULAR HEMOGLOBIN 32.7 pg (27.0-33.0); MEAN CORPUSCULAR HGB CONC 31.7 g/dl (32.0-36.5); MEAN CORPUSCULAR VOLUME 102.9 fl (80.0-96.0); PLATELET COUNT, AUTOMATED 236 k/mm3 (150-450); RED CELL DISTRIBUTION WIDTH 17.9 % (11.5-14.5); WHITE BLOOD COUNT 16.7 K/mm3 (4.0-10.0)
[2017-03-19 07:30] LABS: ANISOCYTOSIS 1+; NUCLEATED RED BLOOD CELL 2 % (0-0)
[2017-03-19] MEDS: METOCLOPRAMIDE HCL LIQUID 10 MG/10 ML UDC PEG SCH ×2 (07:31→21:57)
[2017-03-19] MEDS ORDERED: HEPARIN 1,000 UNITS/ML 10ML VIAL (FOR RADIOLOGY& DIALYSIS ONLY) XX ONE (11:15)
[2017-03-19] MEDS ORDERED: HEPARIN 1,000 UNITS/ML 10ML VIAL (FOR RADIOLOGY& DIALYSIS ONLY) IV ONE (11:15)
[2017-03-19 12:45] VITALS: BP 98/49
[2017-03-19] MEDS: LEVOTHYROXINE 0.125 MG TAB (125 MCG) PO SCH (13:10)
[2017-03-19] MEDS: FOLIC ACID 1 MG TAB PEG SCH (13:11)
[2017-03-19] MEDS: POTASSIUM CHLORIDE 10% LIQ 20 MEQ/15 ML UDC PEG SCH (13:11)
--- NOTE | 2017-03-19 13:11 | IPN ---
DATE: 03/19/2017 SUBJECTIVE: Patient was seen and examined at the bedside today in the morning during hemodialysis. Patient was tolerating the hemodialysis procedure well. She does not have any active complaints at this time. REVIEW OF SYSTEMS: Patient is baseline mentally retarded but she is awake, asymptomatic. She is unable to provide any lab review of systems but clinically she is not short of breath at this time and she is happily getting dialyzed at this moment. OBJECTIVE: Vital signs: Temperature is 97.7 degree Fahrenheit, blood pressure is 104/59, pulse is 67, respiratory rate 18, saturating 93% on nasal cannula at 2 liters. Intake and output: Urine output is not recorded. Weight on the bed scale is 56.6 kg. PHYSICAL EXAMINATION: General: Patient is awake, alert, oriented times one, lying in bed getting hemodialysis. Head and neck exam: Extraocular muscles intact. Pupils equally round and reactive to light. Mucous membranes are moist. Neck is supple. There is no jugular venous distention (JVD). Cardiovascular: S1, S2. Regular rate. No murmur, rub or gallop. Respiratory: Chest is clear to auscultation bilaterally. Bilateral equal air entry. Abdomen is soft, positive bowel sounds. Patient has a PEG tube in the epigastrium. There is no tenderness in the abdomen. Extremities: No clubbing or cyanosis. There is no edema of the bilateral lower extremities. Central nervous system: Patient follows commands. She is oriented times one. Otherwise no focal deficit at this time. LAB REVIEW: CBC showed WBC of 16.7, hemoglobin is 11, platelets are 236. BMP showed sodium 132, potassium 4.6, chloride 94, bicarbonate 26, BUN 65, creatinine 5.2. Magnesium is 2.9. BNP is 1790. Albumin is 3.3. CURRENT MEDICATIONS: Patient continues to be in IV antibiotics. Her IV Solu-Medrol was stopped yesterday. She is currently on prednisone 40 mg by mouth daily. There is no other change in the medications today as compared with yesterday. ASSESSMENT: 71-year-old female with past medical history of end stage renal disease on hemodialysis admitted this time because of shortness of breath secondary to fluid overload and possible aspiration pneumonitis. PLAN: 1. End stage renal disease on hemodialysis. Today is patient's regular dialysis day. We are dialyzing the patient. We shall try to do an ultrafiltration of around 2-3 liters as tolerated by patient's blood pressure. 2. Fluid overload. Patient's volume status is optimized with dialysis. Patient is getting more ultrafiltration with hemodialysis today. We shall do another repeat chest x-ray today. 3. Possible aspiration pneumonitis. Patient has elevated white cell count today. May need to look for possible aspiration of the PEG tube feeds. Continue Levaquin and vancomycin and repeat chest x-ray as mentioned above. 4. Anemia and end stage renal disease. Patient's hemoglobin is 11 at this time. Continue current dose of Aranesp 100 mcg IV every hemodialysis. 5. Hyponatremia. It is secondary to end stage renal disease and fluid. Patient will get hemodialysis and ultrafiltration that could help improve sodium levels. 6. Chronic obstructive pulmonary disease (COPD). Patient's Solu-Medrol has been stopped. She has been switched to oral prednisone. She continues to be on nebulizations. The rest of the management is per primary team.
[2017-03-19] MEDS: LevoFLOXacin IV 500 MG in APPROPRIATE DILUENT 1 EA IV SCH (15:42)
[2017-03-19] MEDS: CHECK TO SEE IF PATIENT IS RECEIVING DIALYSIS TODAY AND REFER TO THE VANCOMYCIN ORDER XX SCH (16:00)
[2017-03-19] MEDS: CALCITONIN NASAL SPRAY 3.7 ML BTL SCH (17:00)
[2017-03-19] MEDS: SIMVASTATIN 20 MG TAB PEG SCH (21:55)
[2017-03-19] MEDS: SENNA 8.6 MG TAB (SENOKOT) PEG SCH (21:56)
[2017-03-19] MEDS: SODIUM CHLORIDE 0.9% NASAL GEL 15MG (AYR) SCH (21:58)
[2017-03-19 22:00] VITALS: BP 119/58
[2017-03-20] MEDS: IPRATROPIUM 0.5MG/ALBUTEROL 2.5MG INH SOL UD 3ML (DUONEB)(J7620) NEB SCH ×2 (01:42→07:35)
[2017-03-20 06:00] VITALS: BP 127/58
[2017-03-20 06:07] LABS: MEAN CORPUSCULAR HEMOGLOBIN 32.3 pg (27.0-33.0); MEAN CORPUSCULAR HGB CONC 31.3 g/dl (32.0-36.5); MEAN CORPUSCULAR VOLUME 103.3 fl (80.0-96.0); PLATELET COUNT, AUTOMATED 212 k/mm3 (150-450); RED CELL DISTRIBUTION WIDTH 18.8 % (11.5-14.5); WHITE BLOOD COUNT 17.2 K/mm3 (4.0-10.0)
[2017-03-20 06:19] LABS: ALBUMIN 3.2 GM/DL (3.2-5.2); ALBUMIN/GLOBULIN RATIO 0.82 (1.00-1.93); BILIRUBIN,TOTAL 0.4 MG/DL (0.2-1.0); CALCIUM LEVEL 9.3 MG/DL (8.8-10.2); CREATININE FOR GFR 3.32 MG/DL (0.55-1.02); GLOMERULAR FILTRATION RATE 14.5 (>39); MAGNESIUM LEVEL 2.4 MG/DL (1.8-2.4); POTASSIUM SERUM 3.6 MEQ/L (3.5-5.1); TOTAL PROTEIN 7.1 GM/DL (6.4-8.2)
[2017-03-20 06:48] LABS: BANDS 1 % (< 11); CORRECTED WHITE BLOOD COUNT 16.4 K/mm3; NUCLEATED RED BLOOD CELL 5 % (0-0)
[2017-03-20 06:49] LABS: ANISOCYTOSIS 1+
--- NOTE | 2017-03-20 08:41 | REP ---
Chest pain. Dyspnea. Rule out pneumonia. Technique: PA and lateral. Comparison: 03/17/2017. Findings: Dialysis catheter with tips in the right atrium. Mild cardiomegaly remains stable. Lung harper demonstrate chronic changes without focal consolidation, effusion, or pneumothorax. Skeletal structures are intact. Impression: No acute cardiopulmonary process or focal consolidation Signed by Paulino Farris MD 03/20/2017 08:33 A
[2017-03-20] MEDS: CINACALCET 30 MG TAB (SENSIPAR) PEG SCH (09:02)
[2017-03-20] MEDS: METOCLOPRAMIDE HCL LIQUID 10 MG/10 ML UDC PEG SCH (09:02)
[2017-03-20] MEDS: predniSONE 20 MG TAB PO SCH (09:02)
[2017-03-20] MEDS: MIDODRINE 5 MG TAB PEG SCH (09:03)
[2017-03-20] MEDS: HEPARIN SOD (PORCINE) 5000 UNITS/ML VIAL SQ SCH (09:03)
[2017-03-20] MEDS: POLYVINYL ALCOHOL OPHTH SOLN 15 ML(LIQUITEARS) OU SCH (09:03)
[2017-03-20] MEDS: PANTOPRAZOLE 40MG INJ (PROTONIX) (C9113) IV SCH (09:03)
[2017-03-20] MEDS ORDERED: MIRALAX *UNIT DOSE* 17GM PACKET PO PRN (09:15)
[2017-03-20] MEDS: LEVOTHYROXINE 0.125 MG TAB (125 MCG) PO SCH (09:32)
[2017-03-20] MEDS ORDERED: LEVA500T PO (10:18)
[2017-03-20] MEDS ORDERED: PRED20TA PO (10:29)
[2017-03-20] MEDS ORDERED: PRED10TA PO (10:29)
[2017-03-20] MEDS ORDERED: PRED5TA PO (10:29)
--- NOTE | 2017-03-20 12:53 | IPN ---
DATE: 03/20/2017 SUBJECTIVE: Patient was seen and examined at the bedside today in the morning. She was sitting on the sofa. She does not have any active complaints. The patient was dialyzed yesterday. She tolerated her hemodialysis procedure well yesterday. REVIEW OF SYSTEMS: Patient has mental retardation. She is very pleasant at this time. She is unable to provide any review of systems as of this time, but clinically she does not look to be any distress. OBJECTIVE: VITAL SIGNS: Temperature is 97.8 degree Fahrenheit, blood pressure is 127/58, pulse is 70, respiratory rate 18, saturating 95% on nasal cannula at 2 liters. INTAKE AND OUTPUT: Urine output is not recorded. She got hemodialysis done yesterday, 1.5 liters of fluid was removed. Weight on the bed scale is 65.1 kg. PHYSICAL EXAMINATION: GENERAL: Patient is awake, alert, oriented times one, sitting on the sofa in no apparently distress. HEAD AND NECK EXAM: Extraocular muscles intact. Pupils equally round and reactive to light. Mucous membranes are moist. Neck is supple. There is no jugular venous distention (JVD). CARDIOVASCULAR: S1, S2. Regular rate. No murmur, rub or gallop. RESPIRATORY: Chest is clear to auscultation bilaterally. Bilateral equal air entry. No rales, no rhonchi. ABDOMEN: Soft, positive bowel sounds. She has a PEG tube in the epigastrium. No tenderness in the abdomen. EXTREMITIES: No clubbing or cyanosis. Pulses are 2+. CENTRAL NERVOUS SYSTEM: Patient follows commands. She is oriented times one. Otherwise no focal neurological deficit. LAB REVIEW: CBC showed WBC of 17.2, hemoglobin is 11.6, platelets are 212. BMP showed sodium 132, potassium 3.6, chloride 95, bicarbonate 27, BUN 45, creatinine 3.3. Albumin is 3.2. IMAGING: Chest x-ray done today morning showed no acute cardiopulmonary process or focal consolidation. CURRENT MEDICATIONS: The patient's medications were all reviewed by me. Patient continues to be on antibiotics. Otherwise, there is no changes in the medications today as compared with yesterday. ASSESSMENT: 71-year-old female with past medical history of end stage renal disease on hemodialysis admitted this time because of shortness of breath secondary to fluid overload and possible aspiration pneumonitis. PLAN: 1. End stage renal disease on hemodialysis. The patient's regular dialysis days are Friday, Friday, and Friday. She was dialyzed yesterday according to her regular schedule. There is no urgent need to do hemodialysis today. Next hemodialysis session will be tomorrow as an outpatient. 2. Fluid overload. Patient's volume status is well optimized. There is no evidence of fluid overload at this time. The patient got hemodialysis and ultrafiltration. Chest x-ray is clear today. 3. Possible aspiration pneumonitis and leukocytosis. There is a possibility that the patient might be aspirating PEG feeds. We need to check the PEG tube for residuals. If she is having high residuals, then we need to decrease the amount of PEG tube feeding and standard aspiration precautions should be followed. Continue the antibiotics at this time to finish a total 10 day course of antibiotics. 4. Hyponatremia. Secondary to end stage renal disease and fluid. Further her hemodialysis and ultrafiltration would help improve hyponatremia. DISCHARGE PLANNING: It is okay to discharge the patient from a nephrology standpoint. She will be dialyzed as an outpatient tomorrow at the center.
--- NOTE | 2017-03-20 13:33 | IPN ---
DATE: 03/19/2017 SUBJECTIVE: Ms. Navarrete was seen and examined at the dialysis unit. The patient did not have any overnight issues. The patient denies shortness of breath, chest pain, or palpitations, racing or skipping heartbeat. The patient also denies nausea or vomiting. OBJECTIVE: VITAL SIGNS: Temperature 97.7, pulse 67, respiratory rate 20, blood pressure 104/59, pulse oximetry 93 on 2 liters nasal cannula. Total intake from yesterday 1110, total output 0. GENERAL APPEARANCE: The patient was lying in bed in no acute distress. The patient was awake, alert and oriented to time, place and person. HEENT: Normocephalic, atraumatic. Pupils are equal and reactive to light. Oral mucosa is moist. NECK: Soft and supple. No lymphadenopathy. No jugular venous distention (JVD). HEART: Regular rate and rhythm. Normal S1, S2. RESPIRATORY: The patient has scattered rhonchi at the base of the lung and good air movement. ABDOMEN: Soft, nontender. Positive bowel sounds in all quadrants. The patient has a percutaneous endoscopic gastrostomy tube in the epigastric area, which is intact. No erythema or swelling was noticed around the area of the PEG tube. EXTREMITIES: No upper or lower extremity edema. +2 pulses in both lower extremities. LABORATORY DATA: White blood cells 16.7, red blood cells 3.37, hemoglobin 11, hematocrit 34.7, MCV 102.9, MCH 32.7, MCHC 31.7, RDW 17.9, platelet count 236, neutrophil percentage 95, lymphocyte percentage 3, monocytes 2, nucleated red blood cells 2, platelet estimate normal, emiocytosis 1+, macrocytosis 2+, sodium 132, potassium 4.7, chloride 94, carbon dioxide 26, anion gap 12, BUN 65, creatinine 5.23, GFR 8.6, fasting glucose 134, calcium 9.6, magnesium 2.9, total bilirubin 0.4, AST 23, ALT 25, alkaline phosphatase 109, C-reactive protein is 3.04, BNP 1790, total protein 7.4, albumin 3.3. ASSESSMENT AND PLAN: 1. Dyspnea. At this time, the patient is at her baseline 2 liters 24 hours. I have spoken with Dr. Barrera and appreciate Dr. Barrera's recommendations. Based upon the possibility of aspiration, I have ordered a new chest x-ray and the result is pending at this time. However, the patient has elevated white blood cells and this is possibly secondary to prednisone. The patient's C-reactive protein has decreased today to 3.04. We will continue the patient with current antibiotic (Levaquin and vancomycin) until we receive the results for the chest x-ray. However, at this time, the patient is at baseline. 2. Chronic obstructive pulmonary disease (COPD) exacerbation. We will continue the patient on prednisone and breathing treatments. The patient is also on oxygen for saturation of 88 to 92%; however, the patient is at her baseline. 3. History of aspiration. The patient has a PEG tube. The patient is on Nepro 200 mg four times a day. At this time, the patient is also on IV Protonix. 4. Severe deficits is a chronic issue. 5. 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 6. Dementia. This is a chronic issue. 7. Anemia. This is possibly secondary to end stage renal disease. However, the patient's hemoglobin and hematocrit are stable. 8. Leukocytosis. This is possibly secondary to prednisone; however, we will continue to monitor the patient for any abnormal symptoms. 9. Hyponatremia. This is secondary to end stage renal disease and fluid overload. The patient has a dialysis session today. We will check the sodium level again tomorrow. 10. Secondary hyperparathyroidism. The patient is on calcitonin and Remeron. 11. Deep vein thrombosis (DVT) prophylaxis. The patient is on heparin every 12 hours. 12. Chronic hypotension. The patient is on midodrine. 13. Dyslipidemia. The patient is on a statin. 14. Dry eyes. The patient is on artificial tears. 15. Osteoarthritis. This is a chronic issue. At this time, the patient is stable. My preceptor for this patient encounter was Dr. Reddy. The preceptor was physically present in the building during the encounter and was fully available. As needed, all aspects of the patient interview, examination, medical decision making process, and medical care plan development were reviewed and approved by the preceptor. The preceptor is aware and concurs with the plan as stated in the body of this note and will attest to such by his/her cosignature.
--- NOTE | 2017-03-23 14:58 | DSES ---
DATE OF ADMISSION: 03/17/2017 DATE OF DISCHARGE: 03/20/2017 PRIMARY CARE PROVIDER: Heather Childers DO CONSULTANTS: Dr. Barrera PROCEDURES: Dialysis. PRIMARY DIAGNOSIS: Dyspnea. SECONDARY DIAGNOSES: 1. Chronic obstructive pulmonary disease (COPD) exacerbation. 2. End stage renal disease. 3. History of aspiration. 4. Deafness. 5. Mental retardation. 6. Dementia. 7. Secondary hyperparathyroidism. 8. Hypothyroidism. 9. Chronic hypotension. 10. Dyslipidemia. 11. Dry eyes. 12. Osteoarthritis. DISCHARGE MEDICATIONS: - Levaquin 500 mg by mouth every 48 hours for 4 days - prednisone 5 mg by mouth for 2 days - prednisone 10 mg by mouth for 2 days - prednisone 20 mg by mouth for 2 days - ipratropium/albuterol one solution inhaled four times a day - artificial tears two drops both eyes three times a day - Dulcolax 10 mg per rectum daily as needed - calcitonin 200 units daily - Sensipar 30 mg daily - folic acid 1 mg via PEG daily - Synthroid 125 mcg by mouth daily - Reglan 5 mg PEG twice a day - midodrine 10 mg via PEG three times a day - Nepro 200 mL via PEG four times a day - potassium chloride 10 mEq via PEG daily - Senna two tablets via PEG four times a day - sevelamer 2.4 grams via PEG daily - Zocor 20 mg via PEG four times a day - sodium chloride one dose at night - sodium bisphosphate - vitamin B one tablet via PEG daily HOSPITALIZATION COURSE: Ms. Navarrete is a 71-year-old female with multiple past medical history who was transferred from [facility] when it was reported that the patient had become tachypneic and wheezing and had shortness of breath. The patient was started on breathing treatments. Also, the patient was started on DuoNeb and Solu-Medrol. The patient also had elevated C-reactive protein. The patient was started on Solu-Medrol. Sputum cultures and blood cultures were sent, which were negative. The patient was continued with oxygen saturation for 88 to 92%. CT angio was positive for possible consolidation on the left lower lobe. Due to the possibility of aspiration, the patient was started on antibiotic; however, the latest x-ray did not show any consolidation. Patient received dialysis on Friday, Friday and Friday. Due to the possibility of chronic obstructive pulmonary disease (COPD) exacerbation secondary to hypervolemia, we have consulted Dr. Barrera, who performed dialysis. At the time of discharge, the patient was medically stable. The patient was discharged for four more days of Levaquin; however, it was renally dosed for a total of 7 days. The patient was discharged back to [facility]. FOLLOWUP: Please followup with the primary care physician and Dr. Barrera within 1 week. Activity as tolerated. My preceptor for this patient encounter was Dr. Reddy. The preceptor was physically present in the building during the encounter and was fully available. As needed, all aspects of the patient interview, examination, medical decision making process, and medical care plan development were reviewed and approved by the preceptor. The preceptor is aware and concurs with the plan as stated in the body of this note and will attest to such by his/her cosignature.
== END 2017-03-20 11:39 | DRG 640 ==
LOC: EDBD 01:41 → M ED 03:16 → M ED INP 08:50 → M PCU 17:44 → M MSPAV 03-18 10:54
PROVIDERS: ADMIT Hospitalist; ATTEND Internal Medicine
PROC: 5A1D00Z (ICD-10-PCS; principal; 2017-03-17)
DX: E87.79 Other fluid overload (principal); N18.6 End stage renal disease; J69.0 Pneumonitis due to inhalation of food and vomit; J44.1 Chronic obstructive pulmonary disease with (acute) exacerbation; N25.81 Secondary hyperparathyroidism of renal origin; E87.1 Hypo-osmolality and hyponatremia; F03.90 Unspecified dementia, unspecified severity, without behavioral disturbance, psychotic disturbance, mood disturbance, and anxiety; F70 Mild intellectual disabilities; E03.9 Hypothyroidism, unspecified; E78.5 Hyperlipidemia, unspecified; M19.90 Unspecified osteoarthritis, unspecified site; Z79.899 Other long term (current) drug therapy; Z79.52 Long term (current) use of systemic steroids; Z93.1 Gastrostomy status; G40.909 Epilepsy, unspecified, not intractable, without status epilepticus; Z88.0 Allergy status to penicillin; Z88.8 Allergy status to other drugs, medicaments and biological substances; H91.90 Unspecified hearing loss, unspecified ear; I25.10 Atherosclerotic heart disease of native coronary artery without angina pectoris; I34.0 Nonrheumatic mitral (valve) insufficiency; I48.91 Unspecified atrial fibrillation; D63.1 Anemia in chronic kidney disease; R06.00 Dyspnea, unspecified

== ENCOUNTER 2017-04-21 02:26 | Emergency (ER) | payer MEDICARE, MEDICAID ==
[~2017-04-21 02:26] MED LIST changes: +BACITAB PEG; -BACITAB3 PEG; -COLA100C3 GT; +COLA100C5 GT; -COUM2.5T11 PEG; +COUM2.5T17 PEG; +ENEMENE16 PR; -FOLI1TAB2 PEG; +FOLI1TAB4 PEG; +IPRASOL4 INH; +IPRATROPIUM/ PO; +KEFL500C17 PEG; -KEFL500C7 PEG; +LEVA1TAB PEG; +LEVA1TAB PO; +LEVA1TAB2 PO; -LEVA250T PEG; -LEVA250T PO; -MIAC1SPR; +MIAC200S2; +NASA0.0517; -NASA0.057; +PRED10TA2 PO; +PRED5TA PO; -ULTR50TA PO; +ULTR50TA8 PO; +VITA-182 PEG; -VITA100037 PEG; -VITA100041 PEG; +VITA100067 PEG
[2017-04-21 04:50] LABS: BASO # 0.1 K/mm3 (0.0-0.2); BASO % 0.6 % (0.0-1.0); EOS # 0.2 K/mm3 (0.0-0.50); EOS % 2.3 % (0.0-3.0); LARGE UNSTAINED CELL # 0.1 K/mm3 (0.0-0.4); LYMPH # 0.6 K/mm3 (1.5-4.5); LYMPH % 5.4 % (24.0-44.0); MEAN CORPUSCULAR HEMOGLOBIN 33.5 pg (27.0-33.0); MEAN CORPUSCULAR VOLUME 101.3 fl (80.0-96.0); MONO # 0.5 K/mm3 (0.0-0.8); MONO % 4.2 % (0.0-5.0); NEUTROPHILS # 9.3 K/mm3 (1.8-7.7); NEUTROPHILS % 86.4 % (36.0-66.0); PLATELET COUNT, AUTOMATED 149 k/mm3 (150-450); RED CELL DISTRIBUTION WIDTH 17.2 % (11.5-14.5); WHITE BLOOD COUNT 10.8 K/mm3 (4.0-10.0)
[2017-04-21 05:12] LABS: ABG BASE EXCESS -2.9 (-2.0-2.0); ABG HCO3 21.5 MEQ/L (22.0-26.0); ABG PARTIAL PRESSURE CO2 35.9 mmHg (35.0-45.0); ABG PARTIAL PRESSURE O2 70.4 mmHg (75.0-100.0); ABG TOTAL CO2 22.6 MEQ/L (23.0-31.0); ABG pH (ARTERIAL) 7.395 UNITS (7.350-7.450)
[2017-04-21 06:04] LABS: ANION GAP 11 MEQ/L (8-16); BLOOD UREA NITROGEN 68 MG/DL (7-18); CALCIUM LEVEL 9.4 MG/DL (8.8-10.2); CARBON DIOXIDE LEVEL 27 MEQ/L (21-32); CHLORIDE LEVEL 86 MEQ/L (98-107); CREATININE FOR GFR 6.52 MG/DL (0.55-1.02); GLOMERULAR FILTRATION RATE 6.6 (>39); GLUCOSE, FASTING 114 MG/DL (83-110); POTASSIUM SERUM 4.8 MEQ/L (3.5-5.1); SODIUM LEVEL 124 MEQ/L (136-145)
[2017-04-21 08:15] VITALS: BP 158/75
--- NOTE | 2017-04-21 10:07 | REP ---
PORTABLE CHEST: AP portable view of the chest is performed and compared to a prior study of . There is again cardiomegaly and vascular congestion. The findings are unchanged since the prior exam. There is calcification of the thoracic aorta. The mediastinal silhouette is unchanged. A right central venous catheter is again noted. IMPRESSION: Stable findings of cardiomegaly and vascular congestion compared to a prior study of 03/17/2017. Signed by Ronny Bell MD 04/21/2017 08:17 P
--- NOTE | 2017-04-22 09:11 | ECGEPIP ---
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
== END 2017-04-21 08:21 | disposition home or self-care (01) ==
LOC: EDBD 02:26 → M ED 03:28
DX: I50.9 Heart failure, unspecified (principal); E87.6 Hypokalemia; I51.7 Cardiomegaly; N18.9 Chronic kidney disease, unspecified; Z99.2 Dependence on renal dialysis; Z99.81 Dependence on supplemental oxygen; Z88.0 Allergy status to penicillin; Z88.8 Allergy status to other drugs, medicaments and biological substances; Z79.899 Other long term (current) drug therapy

== ENCOUNTER → 2017-04-22 | Outpatient (REF) | payer MEDICARE, MEDICAID ==
[~2017-04-22] MED LIST changes: -BACITAB PEG; +BACITAB3 PEG; +COLA100C3 GT; -COLA100C5 GT; +COUM2.5T11 PEG; -COUM2.5T17 PEG; -ENEMENE16 PR; +FOLI1TAB2 PEG; -FOLI1TAB4 PEG; -KEFL500C17 PEG; +KEFL500C7 PEG; -LEVA1TAB PEG; -LEVA1TAB PO; -LEVA1TAB2 PO; +LEVA250T PEG; +LEVA250T PO; +LEVA500T PO; +MIAC1SPR; -MIAC200S2; -NASA0.0517; +NASA0.057; -PRED10TA2 PO; +ULTR50TA PO; -ULTR50TA8 PO; -VITA-182 PEG; +VITA100037 PEG; +VITA100041 PEG; -VITA100067 PEG
[2017-04-22 11:06] LABS: MEAN CORPUSCULAR HEMOGLOBIN 33.4 pg (27.0-33.0); MEAN CORPUSCULAR HGB CONC 32.3 g/dl (32.0-36.5); MEAN CORPUSCULAR VOLUME 103.3 fl (80.0-96.0); RED CELL DISTRIBUTION WIDTH 17.4 % (11.5-14.5); WHITE BLOOD COUNT 7.1 K/mm3 (4.0-10.0)
[2017-04-22 11:24] LABS: ALBUMIN 3.8 GM/DL (3.2-5.2); ALBUMIN/GLOBULIN RATIO 1.06 (1.00-1.93); BILIRUBIN,TOTAL 0.5 MG/DL (0.2-1.0); CALCIUM LEVEL 9.2 MG/DL (8.8-10.2); CREATININE FOR GFR 3.88 MG/DL (0.55-1.02); GLOMERULAR FILTRATION RATE 12.1 (>39); POTASSIUM SERUM 3.8 MEQ/L (3.5-5.1); TOTAL PROTEIN 7.4 GM/DL (6.4-8.2)
== END ==
PROVIDERS: ATTEND Internal Medicine
DX: J44.9 Chronic obstructive pulmonary disease, unspecified (principal)

== ENCOUNTER 2017-05-15 18:19 | Inpatient (IN) | payer MEDICARE, MEDICAID ==
[~2017-05-15] VITALS: Ht 157.5 cm; Wt 67.4 kg
[~2017-05-15 18:19] MED LIST changes: +BACITAB PEG; -BACITAB3 PEG; -COLA100C3 GT; +COLA100C5 GT; -COUM2.5T11 PEG; +COUM2.5T17 PEG; +ENEMENE16 PR; -FOLI1TAB2 PEG; +FOLI1TAB4 PEG; +KEFL500C17 PEG; -KEFL500C7 PEG; +LEVA1TAB PEG; +LEVA1TAB PO; +LEVA1TAB2 PO; -LEVA250T PEG; -LEVA250T PO; -LEVA500T PO; -MIAC1SPR; +MIAC200S2; +NASA0.0517; -NASA0.057; +PRED10TA2 PO; -ULTR50TA PO; +ULTR50TA8 PO; +VITA-182 PEG; -VITA100037 PEG; -VITA100041 PEG; +VITA100067 PEG
[2017-05-15 19:34] LABS: BASO # 0.1 K/mm3 (0.0-0.2); BASO % 0.7 % (0.0-1.0); EOS # 0.3 K/mm3 (0.0-0.50); EOS % 1.6 % (0.0-3.0); LARGE UNSTAINED CELL # 0.2 K/mm3 (0.0-0.4); LARGE UNSTAINED CELL % 1.1 % (0.0-4.0); LYMPH # 0.4 K/mm3 (1.5-4.5); LYMPH % 2.2 % (24.0-44.0); MEAN CORPUSCULAR HEMOGLOBIN 32.9 pg (27.0-33.0); MEAN CORPUSCULAR HGB CONC 32.6 g/dl (32.0-36.5); MEAN CORPUSCULAR VOLUME 100.7 fl (80.0-96.0); MONO # 0.8 K/mm3 (0.0-0.8); MONO % 4.9 % (0.0-5.0); NEUTROPHILS # 14.9 K/mm3 (1.8-7.7); NEUTROPHILS % 89.5 % (36.0-66.0); PLATELET COUNT, AUTOMATED 150 k/mm3 (150-450); RED CELL DISTRIBUTION WIDTH 15.6 % (11.5-14.5); WHITE BLOOD COUNT 16.6 K/mm3 (4.0-10.0)
--- NOTE | 2017-05-15 19:40 | REP ---
PORTABLE CHEST: AP portable view of the chest is performed and compared to prior study of 04/21/2017. There is cardiomegaly unchanged. There is calcification of the thoracic aorta. The mediastinal silhouette is unchanged. Right central venous catheter is again noted. There is vascular congestion and mild prominence of interstitial markings also stable. IMPRESSION: Stable examination compared to prior study of 04/20/2017. Signed by Ronny Bell MD 05/16/2017 05:20 P
--- NOTE | 2017-05-15 19:44 | ECGEPIP ---
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
[2017-05-15 19:54] LABS: CALCIUM LEVEL 9.5 MG/DL (8.8-10.2); CREATININE FOR GFR 4.23 MG/DL (0.55-1.02); POTASSIUM SERUM 4.7 MEQ/L (3.5-5.1)
[2017-05-15] MEDS ORDERED: IPRATROPIUM 0.5MG/ALBUTEROL 2.5MG INH SOL UD 3ML (DUONEB)(J7620) NEB ONE (20:00)
[2017-05-15 20:38] LABS: ABG BASE EXCESS 3.3 (-2.0-2.0); ABG HCO3 28.1 MEQ/L (22.0-26.0); ABG PARTIAL PRESSURE CO2 43.6 mmHg (35.0-45.0); ABG PARTIAL PRESSURE O2 134.7 mmHg (75.0-100.0); ABG STANDARD HCO3 27.5 MEQ/L (22.0-26.0); ABG TOTAL CO2 29.4 MEQ/L (23.0-31.0); ABG pH (ARTERIAL) 7.427 UNITS (7.350-7.450)
--- NOTE | 2017-05-15 22:30 | REPUSA ---
CT of the chest without contrast Clinical statement: Shortness of breath. Technique: Multiple axial CT images were obtained with 5 mm cuts through the chest without administra tion of contrast. Comparison: 03/17/2017. Findings: There is no thoracic lymphadenopathy. The visualized portions of the thyroid gland is unrem arkable. There are patchy infiltrates in the left lower lung with small left-sided pleural effusion. Limited imaging of the upper abdomen does not demonstrate any acute abnormalities. There are no suspi cious osseous lesions. Impression: Left lower lobe infiltrate consistent with pneumonia. Small left-sided pleural effusion.
[2017-05-16] MEDS ORDERED: IMIPENEM/CILASTATIN 500 MG in D5W MINI-BAG PLUS 100 ML IV ONE ×2
[2017-05-16] MEDS ORDERED: LevoFLOXacin IV 750 MG in APPROPRIATE DILUENT 1 EA IV ONE ×2
[2017-05-16] MEDS ORDERED: VANCOMYCIN HCL 1,000 MG, VIAL MATE ADAPTER 1 EACH in D5W 250 ML IV ONE ×3
[2017-05-16] MEDS ORDERED: [UNRECOGNIZED DRUG - OTHER] EXT (00:26)
[2017-05-16] MEDS ORDERED: methylPREDNISolone INJ 125 MG/2 ML VIAL (J2930) IV ONE (00:30)
[2017-05-16] MEDS ORDERED: ONDANSETRON 4MG/2ML VIAL (J2405) IV PRN (00:30)
[2017-05-16] MEDS ORDERED: IPRATROPIUM 0.5MG/ALBUTEROL 2.5MG INH SOL UD 3ML (DUONEB)(J7620) NEB PRN (00:30)
[2017-05-16] MEDS ORDERED: BISACODYL 10 MG SUPP PR PRN (00:45)
[2017-05-16] MEDS ORDERED: FLEET ENEMA PR PRN (00:45)
[2017-05-16 01:27] VITALS: BP 156/61
[2017-05-16] MEDS: IPRATROPIUM 0.5MG/ALBUTEROL 2.5MG INH SOL UD 3ML (DUONEB)(J7620) NEB SCH ×4 (02:17→19:12)
--- NOTE | 2017-05-16 05:15 | PHACANCOPD ---
PHARMACY VANCOMYCIN DOSING Pt Demographics Demographics Patient Age:71 , Weight:63.900 , Gender: female Adjusted Body Weight Date: 05/16/17, Adjusted Body Weight: [63.9] Kg actual weight Events Past 24 Hours Events Past 24 Hours: YES: Dialysis Vancomycin Vancomycin indication: HCAP Vancomycin Target Ranges: 15-20 mcg/ml Vancomycin Load Y/N: No Load Dose Date Time Vancomycin Load Dose: Date: Time: Vancomycin Dose Date: 05/16/17. Current Vancomycin Dose: [750MG AFTER DIALYSIS] Intermittent Dosing?: No Labs Labs Laboratory Tests 05/15/17 19:05 Red Blood Count 3.25 L, Mean Corpuscular Volume 100.7 H, Mean Corpuscular Hemoglobin 32.9, Mean Corpuscular Hemoglobin Concent 32.6, Red Cell Distribution Width 15.6 H, Neutrophils (%) (Auto) 89.5 H, Lymphocytes (%) (Auto ) 2.2 L, Monocytes (%) (Auto) 4.9, Eosinophils (%) (Auto) 1.6, Basophils (%) ( Auto) 0.7, Neutrophils # (Auto) 14.9 H, Lymphocytes # (Auto) 0.4 L, Monocytes # (Auto) 0.8, Eosinophils # (Auto) 0.3, Basophils # (Auto) 0.1, Calcium Level 9.5 Micro Microbiology 05/15/17 Blood Culture, Received Pending 05/16/17 Respiratory Virus Panel (PCR) (DEBBIE) - Final, Complete Creatinine Clearance Date:05/16/17. Creatinine Clearance: [10.2]. Assessment and Plan Maintaining Current Dose?: Yes Reason for dose change: No Dose Change Pharmacist Note Pharmacist Note Date: 05/16/17. Pharmacist note:71 YOF ADMITTED W/HCAP:REC'D Vancomycin 1gm, levaquin 750mg and Imipenem 500mg IV IN ED ONTINUING W/LEVAQUIN 250MG Q24H, MEROPENEM 500MG Q24,AND TO RECEIVE 750MG VANCOMYCIN AFTER DIALYSIS (M-W-).SCR= 4.23: CRCL=10.2.wILL DRAW RANDOM Vancomycin levels w/am labs and will continue to follow [facility] May 16, 2017 05:15
[2017-05-16] MEDS: LEVOTHYROXINE 125MCG TABLET (0.125MG) PO SCH (05:53)
[2017-05-16] MEDS: MIDODRINE 5 MG TAB PEG SCH ×3 (05:53→18:11)
[2017-05-16 06:00] VITALS: BP 104/55
--- NOTE | 2017-05-16 06:32 | HPE ---
DATE OF ADMISSION: 05/16/2017 PRIMARY CARE PROVIDER: Heather Childers DO. CHIEF COMPLAINT: Shortness of breath. CODE STATUS: DO NOT RESUSCITATE, DO NOT INTUBATE. HISTORY OF PRESENT ILLNESS: This is a 71-year-old female patient with underlying medical history of mental retardation, end-stage renal disease on dialysis Friday, Friday, Friday, diastolic congestive heart failure, chronic obstructive pulmonary disease (COPD) on 2 liters of oxygen [facility], aspiration with percutaneous endoscopic gastrostomy (PEG) tube, hearing deficiency, seizure disorder, history of gastrointestinal (GI) bleed, hypothyroidism, osteoarthritis. Patient resides at [facility], was brought to [facility] for dyspnea and tachypnea and cough. Further history difficult to obtain given patient minimally verbal. Patient did report cough and reported shortness of breath. Denies any abdominal pain, chest pain. No other complaints. Patient frequently admitted to the hospital. PAST MEDICAL HISTORY: 1. End-stage renal disease on dialysis Friday, Friday, Friday. 2. Diastolic congestive heart failure. 3. COPD on 2 liters of oxygen at baseline. 4. Mild mental retardation. 5. Dementia. 6. Aspiration with PEG tube. 7. Hearing deficiency. 8. Seizure disorder. 9. History of GI bleed. 10. Hypothyroidism. 11. Osteoarthritis. PAST SURGICAL HISTORY: 1. PEG tube placement. 2. Hemodialysis catheter. 3. Pericardial window. ALLERGIES: To PENICILLIN and PENICILLIN CROSS REACTORS and ACETAMINOPHEN. SOCIAL HISTORY: Patient lives at [facility]. Does not have history of alcohol or illicit drug use and did not have history of smoking. FAMILY HISTORY: Unable to obtain. HOME MEDICATIONS: - DuoNebs inhalation four times a day - artificial tears four times a day - bees wax liquid for dry lips as needed - Dulcolax rectal suppository 10 mg daily as needed - calcitonin 200 units nasal every evening - Sensipar 30 mg PEG daily - folic acid 1 mg PEG daily - Synthroid 125 mcg PEG daily - Reglan 5 mg PEG daily - midodrine 10 mg PEG three times a day - Nepro tube feeding 200 mL PEG four times a day - potassium chloride 10 mEq PEG daily - senna 8.6 mg PEG nightly - Renvela 2.4 mg via PEG daily - Zocor 20 mg PEG nightly - Fleet enema as needed REVIEW OF SYSTEMS: Unable to obtain given patient minimally verbal. PHYSICAL EXAMINATION: VITAL SIGNS: Temperature 100.4, pulse 66, respirations 28, blood pressure 104/57, pulse oximetry 97% on 4 liters nasal cannula. GENERAL: Patient minimally verbal, alert and oriented times one in no acute distress. HEENT: Normocephalic, atraumatic. PULMONARY: Very tight, tachypneic, bilateral wheeze with left basilar crackles. CARDIAC: Regular S1, S2. ABDOMEN: Obese, distended, soft, nontender. Positive bowel sounds. No rebound. No guarding. EXTREMITIES: No edema bilateral lower extremities. LABORATORY: WBC 16.6, hemoglobin and hematocrit 10.7/32.7, platelets 150. Chemistry: Sodium 134, potassium 4.7, chloride 96, bicarbonate 28, BUN 48, creatinine 4.23, lactic acid 1.7. EKG sinus rhythm with rate of 71, no ST segment changes. ASSESSMENT AND PLAN: This is a 71-year-old female patient with underlying medical history of end-stage renal disease on dialysis Friday, Friday, Friday, diastolic congestive heart failure, chronic obstructive pulmonary disease (COPD) with 2 liter oxygen at baseline, mild mental retardation, dementia, aspiration, deaf, seizure disorder, history of gastrointestinal (GI) bleed, hypothyroidism, osteoarthritis, admitted with sepsis secondary to healthcare-associated bacterial pneumonia. 1. Sepsis secondary to healthcare-associated bacterial pneumonia. Patient currently hemodynamically stable with normal lactic acid. Will treat for healthcare-associated bacterial pneumonia with Levaquin, meropenem and vancomycin. Methicillin-resistant Staphylococcus aureus (MRSA) screening, respiratory panel, followup cultures. CT scan appreciated. Followup C-reactive protein. 2. COPD exacerbation secondary to pneumonia. Continue antibiotics mentioned above. Followup cultures. Solu-Medrol, taper steroid as tolerated. X-rays and CT scans appreciated. Oxygen supplementation. Nebulizer treatment. 3. Hypothyroidism. Continue levothyroxine. 4. End-stage renal disease. Continue current medication. Will consult nephrology for continuation of hemodialysis and follow electrolytes. 5. Mild mental retardation. Supportive care. 6. Dementia. Supportive care. 7. History of aspiration pneumonitis. Continue percutaneous endoscopic gastrostomy (PEG) feeding, aspiration precautions. 8. Dyslipidemia. Continue statin. 9. Constipation. Continue bowel regimen. 10. History of seizure disorder. Seizure precautions. Continue to monitor. 11. Deep venous thrombosis (DVT) prophylaxis. Heparin subcutaneously. DISPOSITION PLANNING: Pending clinical improvement. Patient with multiple comorbidities. Prognosis guarded.
[2017-05-16 07:22] VITALS: O2SAT 96
[2017-05-16 07:22] LABS: ALBUMIN 3.2 GM/DL (3.2-5.2); CALCIUM LEVEL 9.3 MG/DL (8.8-10.2); CREATININE FOR GFR 4.96 MG/DL (0.55-1.02); GLOMERULAR FILTRATION RATE 9.1 (>39); MAGNESIUM LEVEL 3.2 MG/DL (1.8-2.4); PHOSPHORUS LEVEL 3.1 MG/DL (2.5-4.9); POTASSIUM SERUM 4.7 MEQ/L (3.5-5.1)
[2017-05-16] MEDS: methylPREDNISolone INJ 40 MG/1 ML VIAL (J2920) IV SCH ×2 (08:32→18:11)
[2017-05-16] MEDS: POLYVINYL ALCOHOL OPHTH SOLN 15 ML(LIQUITEARS) OU SCH ×4 (08:32→21:24)
[2017-05-16] MEDS: SENOKOT S TAB PO SCH ×2 (08:33→21:24)
[2017-05-16] MEDS: HEPARIN SOD (PORCINE) 5000 UNITS/ML VIAL SC SCH ×2 (08:33→21:24)
[2017-05-16] MEDS: FOLIC ACID 1 MG TAB PEG SCH (08:33)
[2017-05-16] MEDS ORDERED: VANCOMYCIN HCL 750 MG, VIAL MATE ADAPTER 1 EACH in D5W 250 ML IV SCH (09:00)
[2017-05-16] MEDS ORDERED: HEPARIN 1,000 UNITS/ML 10ML VIAL (FOR RADIOLOGY& DIALYSIS ONLY) IV ONE (13:15)
[2017-05-16 14:00] VITALS: BP 107/56
[2017-05-16] MEDS: METOCLOPRAMIDE 5 MG TAB PEG SCH (14:21)
[2017-05-16] MEDS: CINACALCET 30 MG TAB (SENSIPAR) PEG SCH (14:21)
[2017-05-16] MEDS: MEROPENEM INJ 500 MG in D5W MINI-BAG PLUS 100 ML IV SCH (14:21)
[2017-05-16] MEDS: (RENVELA) SEVELAMER **CARBONate** 800 MG TAB PEG SCH (14:21)
[2017-05-16] MEDS: **NOTE PATIENT COMMENT** MISC XX SCH (15:53)
[2017-05-16] MEDS: CALCITONIN NASAL SPRAY 3.7 ML BTL SCH (18:11)
[2017-05-16] MEDS: SENNA 8.6 MG TAB (SENOKOT) PEG SCH (21:24)
[2017-05-16] MEDS: SIMVASTATIN 20 MG TAB PEG SCH (21:24)
[2017-05-16 22:00] VITALS: BP 100/51
[2017-05-16] MEDS: SODIUM CHLORIDE 0.9% NASAL GEL 15MG (AYR) SCH (22:00)
--- NOTE | 2017-05-17 00:32 | CR ---
DATE OF CONSULTATION: 05/16/2017 CONSULTATION REPORT FOR: Lani Justin MD. REASON FOR CONSULTATION: To assist in the management of end-stage renal disease. HISTORY OF PRESENT ILLNESS: Mrs. Navarrete is a 71-year-old female with multiple chronic medical problems. She is a alf resident and was sent to the emergency room yesterday due to respiratory difficulty. She was found to have infiltrates on her CT scan of chest. She was admitted last evening. A nephrology consultation was requested this morning. The patient is seen this morning. She is due for dialysis and we have already arranged for her dialysis treatment. PAST MEDICAL AND SURGICAL HISTORY: Significant for: 1. Longstanding end-stage renal disease requiring maintenance hemodialysis on Friday, Friday and Friday schedule. 2. Chronic obstructive pulmonary disease (COPD). 3. History of coronary artery disease. 4. History of diastolic congestive heart failure. 5. History of mild mental retardation and chronic dementia. 6. History of mitral regurgitation. 7. History of atrial fibrillation. 8. Hypothyroidism. 9. History of seizure disorder. 10. History of severe degenerative arthritis with very limited movements of her limbs. She is mostly bedridden. 11. History of recurrent aspiration pneumonia. 12. History of anemia of chronic kidney disease. 13. History of pulmonary nodules. ALLERGIES: The patient has allergy to PENICILLIN and TYLENOL. MEDICATIONS: Her medications include: - DuoNebs four times a day - artificial tears three times a day - Sensipar 30 mg daily - folic acid 1 mg daily - levothyroxine 125 mcg daily - metoclopramide 5 mg twice a day via PEG - midodrine 10 mg three times a day - Nepro 240 mL four times a day via PEG tube - potassium chloride 10 mEq daily - Senokot two tablets daily - Renvela 2.4 grams daily - Zocor 20 mg daily - multivitamin one tablet daily PERSONAL AND SOCIAL HISTORY: The patient is a long-term alf resident. She does not smoke or drink. Family history is negative for end-stage renal disease. REVIEW OF SYSTEMS: The patient has significant deafness and mild dementia and mental retardation. She is unable to provide any information. She does nod her head. However, she talks only one or two words. Complete review of systems is not possible as the patient is not able to provide much information. PAST SURGICAL HISTORY: Significant for a Perma-Cath placement for dialysis, percutaneous endoscopic gastrostomy (PEG) tube placement and a pericardial window in the past for pericardial effusion. PHYSICAL EXAMINATION: Temperature 96.7 degrees Fahrenheit, heart rate 70 per minute and respiratory rate 24 per minute. Blood pressure 104/55 mmHg and oxygen saturation 96% on 2 liters of oxygen. Head is atraumatic. Pupils are equal and reactive to light and sclera is anicteric. Neck is supple and there is a dialysis catheter in her right internal jugular vein. Neck veins are difficult to be assessed. Heart sounds are regular, somewhat distant. Lungs have scattered rhonchi. Abdomen soft and nontender and without palpable organomegaly. Bowel sounds are normal. Extremities have no cyanosis or clubbing. She has significant limitation of range of motion on her shoulders and lower extremity joints. Neurologically, she is awake and at her baseline mentation. LABORATORY DATA: WBC count 16.6, hemoglobin 10.7, hematocrit 32.7. Platelets 150. Sodium 131 and potassium 4.7. BUN 54 and creatinine 4.96. Her C-reactive protein is 9.31. Blood gas showed a pH of 7.42, pCO2 43.6 and pO2 134.7. Bicarbonate 27.5. Chest x-ray showed mostly chronic changes. A CT scan of chest was done, which showed a small left pleural effusion and left lower lobe infiltrate. PROBLEMS: 1. End-stage renal disease. The patient is due for dialysis today and she is already here in dialysis room being dialyzed. We will complete her dialysis treatment. We are removing about 2.5 liters of fluid in order to help with her respiratory status. 2. Recurrent pneumonia. The patient has history of recurrent aspiration and currently has a PEG tube for feeding. She is being treated with vancomycin and Primaxin. Vancomycin will be given after dialysis 750 mg while she has already received a dose of 1000 mg on admission. Primaxin has also been stopped after one dose due to risk of seizures and she is now on levofloxacin 250 mg every 24 hours. 3. Hypercalcemia. She does have history of hypercalcemia. However, her calcium level has now improved. She remains on nasal spray and will continue to use low calcium bath for her dialysis. 4. Anemia. Her anemia is related to chronic kidney disease and stable at baseline. 5. Diastolic congestive heart failure. Her volume status is well-compensated and 2.5 liters fluid is being removed. She is tolerating fluid removal well. I thank you for involving me in the care of Mrs. Navarrete. I will follow her along with you.
[2017-05-17] MEDS: methylPREDNISolone INJ 40 MG/1 ML VIAL (J2920) IV SCH ×2 (01:14→12:29)
[2017-05-17] MEDS: IPRATROPIUM 0.5MG/ALBUTEROL 2.5MG INH SOL UD 3ML (DUONEB)(J7620) NEB SCH ×4 (02:00→19:23)
[2017-05-17 06:00] VITALS: BP 121/62
[2017-05-17 06:05] LABS: MEAN CORPUSCULAR HEMOGLOBIN 32.8 pg (27.0-33.0); MEAN CORPUSCULAR HGB CONC 32.4 g/dl (32.0-36.5); MEAN CORPUSCULAR VOLUME 101.2 fl (80.0-96.0); RED CELL DISTRIBUTION WIDTH 15.8 % (11.5-14.5); WHITE BLOOD COUNT 14.7 K/mm3 (4.0-10.0)
[2017-05-17] MEDS: LEVOTHYROXINE 125MCG TABLET (0.125MG) PO SCH (06:16)
[2017-05-17] MEDS: MIDODRINE 5 MG TAB PEG SCH ×3 (06:17→17:31)
[2017-05-17 06:20] LABS: ALBUMIN 3.3 GM/DL (3.2-5.2); CALCIUM LEVEL 9.2 MG/DL (8.8-10.2); CREATININE FOR GFR 2.95 MG/DL (0.55-1.02); GLOMERULAR FILTRATION RATE 16.6 (>39); MAGNESIUM LEVEL 2.9 MG/DL (1.8-2.4); PHOSPHORUS LEVEL 3.3 MG/DL (2.5-4.9); POTASSIUM SERUM 4.7 MEQ/L (3.5-5.1)
[2017-05-17 09:00] VITALS: BP 110/72
[2017-05-17] MEDS: SENOKOT S TAB PO SCH ×2 (09:00→21:18)
[2017-05-17] MEDS: HEPARIN SOD (PORCINE) 5000 UNITS/ML VIAL SC SCH ×2 (10:18→21:18)
[2017-05-17] MEDS: POLYVINYL ALCOHOL OPHTH SOLN 15 ML(LIQUITEARS) OU SCH ×4 (10:19→21:18)
[2017-05-17] MEDS: LevoFLOXacin IV 250 MG in APPROPRIATE DILUENT 1 EA IV SCH (10:19)
[2017-05-17] MEDS: FOLIC ACID 1 MG TAB PEG SCH (10:20)
[2017-05-17] MEDS: MEROPENEM INJ 500 MG in D5W MINI-BAG PLUS 100 ML IV SCH (12:29)
[2017-05-17] MEDS: METOCLOPRAMIDE 5 MG TAB PEG SCH (12:30)
[2017-05-17] MEDS: (RENVELA) SEVELAMER **CARBONate** 800 MG TAB PEG SCH (12:30)
[2017-05-17] MEDS: CINACALCET 30 MG TAB (SENSIPAR) PEG SCH (12:30)
--- NOTE | 2017-05-17 12:56 | IPNPDOC ---
Subjective Date Seen The patient was seen on 05/17/17. Subjective Chief Complaint/HPI Patient seen and examined at the bedside. Remains limited 2/2 underlying MR, but pleasant and offers no acute complaints. Objective Physical Examination General Exam: Positive: No Acute Distress ENT Exam: Positive: Atraumatic, Mucous membr. moist/pink Neck Exam: Negative: JVD Chest Exam: Positive: Diminished, Negative: Rales Heart Exam: Positive: Rate Normal, Normal S1, Normal S2 Abdomen Exam: Positive: Soft, Other (+PEG tube), Negative: Tenderness Extremity Exam: Negative: Tenderness, Swelling Assessment /Plan Plan/VTE VTE Prophylaxis Ordered?: Yes Plan Dyspnea likely 2/2 HCAP, COPD exacerbation Patient currently requiring 2 L of oxygen supplementation via nasal cannula, at baseline she does require 2 L of oxygen continuously Blood culture with no growth as of today, Resp panel negative Solu-medrol down titrated to 40 mg q12h Continue empiric abx Continue Duoneb therapy, current med regimen We will continue to monitor her progress and anticipate discharge within 24-48 hours. End-stage renal disease on hemodialysis (Mondays, Wednesdays, Fridays) Nephrology on board Leukocytosis likely secondary to steroids Blood cultures with no growth to date Patient has remained afebrile here this AM Macrocytic anemia Hemoglobin appears at baseline Mental retardation Patient's mentation appears to be at baseline Dyslipidemia Continue statin Hypothyroidism Cont Levothyroxine Hypotension Continue Midodrine 3 times a day History of aspiration pneumonitis Continue (PEG) feeding, aspiration precautions. DVT prophylaxis Heparin SC Disposition-patient's respiratory status continues to improve. Likely discharge in 24-48 hours back to [facility]. VS, I&O, 24H, Fishbone Vital Signs/I&O Vital Signs Date Time Temp Pulse Resp B/P (MAP) Pulse Ox O2 Delivery O2 Flow Rate FiO2 05/17/17 09:30 Nasal Cannula 2.0 05/17/17 09:00 97.8 68 22 110/72 (85) 97 100 I&O- Last 24 Hours up to 6 AM 05/17/17 06:00 Intake Total 1575 ml Output Total 2500 ml Balance -925 ml Laboratory Data 24H LABS Laboratory Tests 2 05/17/17 05:53: Blood Urea Nitrogen 49H, Creatinine 2.95H, Sodium Level 131L, Potassium Level 4.7, Chloride Level 94L, Carbon Dioxide Level 25, Anion Gap 12, Glomerular Filtration Rate 16.6L, Calcium Level 9.2, Phosphorus Level 3.3, Magnesium Level 2.9H, Albumin 3.3 CBC/BMP Laboratory Tests 05/17/17 05:53 Red Blood Count 3.06 L, Mean Corpuscular Volume 101.2 H, Mean Corpuscular Hemoglobin 32.8, Mean Corpuscular Hemoglobin Concent 32.4, Red Cell Distribution Width 15.8 H, Anion Gap 12 Microbiology Microbiology 05/15/17 Blood Culture - Preliminary, Resulted No growth after 24 hours . All specim... 05/16/17 Respiratory Virus Panel (PCR) ([facility]BBIE) - Final, Complete TORI PITTS MD May 17, 2017 12:56
[2017-05-17 13:30] VITALS: BP 122/68
[2017-05-17] MEDS: **NOTE PATIENT COMMENT** MISC XX SCH (14:45)
--- NOTE | 2017-05-17 17:11 | IPN ---
DATE: 05/17/2017 Mrs. Navarrete is seen this morning on her bedside. She denies any complaints and looks comfortable. She was admitted with left-sided pneumonia and was dialyzed yesterday, which was her regular day. On physical examination, temperature 97.8 degrees Fahrenheit, heart rate 68 per minute and respiratory rate 22 per minute. Blood pressure 110/72 mmHg and oxygen saturation 97% on 2 liters oxygen. Head is atraumatic. Neck veins are difficult to be assessed. Pupils equal and reactive to light and sclera is anicteric. Dialysis catheter in left internal jugular vein is intact. Heart sounds are regular and lungs with scattered basilar rhonchi. There is good bilateral air entry. Abdomen soft and nontender. A percutaneous endoscopic gastrostomy (PEG) tube is in place. Extremities have no cyanosis or clubbing. Neurologically, she is at her baseline mentation. Today's laboratories show WBC count 14.7, hemoglobin 10.0, hematocrit 31.0. Sodium 131 and potassium 4.7. BUN 49 and creatinine 2.95. Calcium 9.2, phosphorus 3.3 and magnesium 2.9. Albumin is 3.3. PROBLEMS: 1. End-stage renal disease. Patient is dialysis dependent. She was dialyzed yesterday and we plan to dialyze her again on Friday. At present, volume status is well-compensated and there is no indication for urgent dialysis today. 2. Hyponatremia. This is related to end-stage renal disease and tube feeding. No change since yesterday. We will continue to monitor without intervention and try to correct it with next hemodialysis. 3. Hypercalcemia. She does have history of hypercalcemia, which has been corrected now. She remains on calcitonin and we will consider to stop it if her calcium level goes below 9.5. 4. Pneumonia. The patient remains on Levaquin 250 mg every 24 hours. She also receives vancomycin 750 mg after each dialysis. 5. Nutrition. Patient remains on tube feeding via percutaneous endoscopic gastrostomy (PEG) tube due to recurrent aspiration pneumonia. I suggest to continue with the same; however, cut down on the free water due to persistent hyponatremia.
[2017-05-17] MEDS: CALCITONIN NASAL SPRAY 3.7 ML BTL SCH (17:32)
[2017-05-17] MEDS: SENNA 8.6 MG TAB (SENOKOT) PEG SCH (21:18)
[2017-05-17] MEDS: SIMVASTATIN 20 MG TAB PEG SCH (21:18)
[2017-05-17] MEDS: SODIUM CHLORIDE 0.9% NASAL GEL 15MG (AYR) SCH (21:22)
[2017-05-17 22:00] VITALS: BP 146/65
[2017-05-18] MEDS: methylPREDNISolone INJ 40 MG/1 ML VIAL (J2920) IV SCH (01:15)
[2017-05-18] MEDS: IPRATROPIUM 0.5MG/ALBUTEROL 2.5MG INH SOL UD 3ML (DUONEB)(J7620) NEB SCH ×4 (01:57→19:24)
[2017-05-18] MEDS: MIDODRINE 5 MG TAB PEG SCH ×3 (05:28→16:50)
[2017-05-18] MEDS: LEVOTHYROXINE 125MCG TABLET (0.125MG) PO SCH (05:28)
[2017-05-18 06:00] VITALS: BP 125/58
[2017-05-18 06:06] LABS: MEAN CORPUSCULAR HEMOGLOBIN 32.4 pg (27.0-33.0); MEAN CORPUSCULAR HGB CONC 31.9 g/dl (32.0-36.5); MEAN CORPUSCULAR VOLUME 101.6 fl (80.0-96.0); RED CELL DISTRIBUTION WIDTH 15.7 % (11.5-14.5); WHITE BLOOD COUNT 17.2 K/mm3 (4.0-10.0)
[2017-05-18 06:20] LABS: ALBUMIN 3.4 GM/DL (3.2-5.2); CALCIUM LEVEL 9.8 MG/DL (8.8-10.2); CREATININE FOR GFR 4.45 MG/DL (0.55-1.02); GLOMERULAR FILTRATION RATE 10.3 (>39); MAGNESIUM LEVEL 3.3 MG/DL (1.8-2.4); PHOSPHORUS LEVEL 5.2 MG/DL (2.5-4.9)
[2017-05-18] MEDS: SENOKOT S TAB PO SCH ×2 (09:54→21:16)
[2017-05-18] MEDS: FOLIC ACID 1 MG TAB PEG SCH (09:54)
[2017-05-18] MEDS: HEPARIN SOD (PORCINE) 5000 UNITS/ML VIAL SC SCH ×2 (09:54→21:16)
[2017-05-18] MEDS: LevoFLOXacin IV 250 MG in APPROPRIATE DILUENT 1 EA IV SCH (09:54)
[2017-05-18] MEDS: POLYVINYL ALCOHOL OPHTH SOLN 15 ML(LIQUITEARS) OU SCH ×4 (09:55→21:16)
--- NOTE | 2017-05-18 10:51 | IPNPDOC ---
Subjective Date Seen The patient was seen on 05/18/17. Subjective Chief Complaint/HPI Patient seen and examined at the bedside. Resting comfortably, and offers no acute complaints at this time. Objective Physical Examination General Exam: Positive: No Acute Distress ENT Exam: Positive: Atraumatic, Mucous membr. moist/pink Neck Exam: Negative: JVD Chest Exam: Positive: Diminished, Negative: Rales Heart Exam: Positive: Rate Normal, Normal S1, Normal S2 Abdomen Exam: Positive: Soft, Other (+PEG tube), Negative: Tenderness Extremity Exam: Negative: Tenderness, Swelling Assessment /Plan Plan/VTE VTE Prophylaxis Ordered?: Yes Plan Dyspnea likely 2/2 HCAP, COPD exacerbation Patient currently requiring 2 L of oxygen supplementation via nasal cannula, at baseline she does require 2 L of oxygen continuously Blood culture with no growth as of today, Resp panel negative IV Solu-medrol transitioned to PO Prednisone Continue Duoneb therapy, current med regimen Empiric Abx transitioned to PO Abx We will continue to monitor her progress and anticipate discharge within 24-48 hours. End-stage renal disease on hemodialysis (Mondays, Wednesdays, Fridays) Nephrology on board Leukocytosis likely secondary to steroids Blood cultures with no growth to date Patient has remained afebrile here this AM Macrocytic anemia Hemoglobin appears at baseline Mental retardation Patient's mentation appears to be at baseline Dyslipidemia Continue statin Hypothyroidism Cont Levothyroxine Hypotension Continue Midodrine 3 times a day History of aspiration pneumonitis Continue (PEG) feeding, aspiration precautions. DVT prophylaxis Heparin SC Disposition-patient's respiratory status continues to improve. Likely discharge in 24-48 hours back to [facility]. VS, I&O, 24H, Fishbone Vital Signs/I&O Vital Signs Date Time Temp Pulse Resp B/P (MAP) Pulse Ox O2 Delivery O2 Flow Rate FiO2 05/18/17 07:12 Nasal Cannula 2.0 05/18/17 06:00 97.0 66 20 125/58 (80) 95 05/17/17 09:00 I&O- Last 24 Hours up to 6 AM 05/18/17 06:00 Intake Total 1340 ml Output Total 0 ml Balance 1340 ml Laboratory Data 24H LABS Laboratory Tests 2 05/18/17 05:19: Blood Urea Nitrogen 87#H, Creatinine 4.45#H, Sodium Level 130L, Potassium Level 5.0, Chloride Level 90L, Carbon Dioxide Level 28, Anion Gap 12, Glomerular Filtration Rate 10.3L, Calcium Level 9.8, Phosphorus Level 5.2#H, Magnesium Level 3.3H, C-Reactive Protein, Quantitative 6.11H, Albumin 3.4 CBC/BMP Laboratory Tests 05/18/17 05:19 Red Blood Count 3.28 L, Mean Corpuscular Volume 101.6 H, Mean Corpuscular Hemoglobin 32.4, Mean Corpuscular Hemoglobin Concent 31.9 L, Red Cell Distribution Width 15.7 H, Anion Gap 12 Microbiology Microbiology 05/15/17 Blood Culture - Preliminary, Resulted No Growth after 48 hours. All Specime... 05/16/17 Respiratory Virus Panel (PCR) ([facility]BBIE) - Final, Complete TORI PITTS MD May 18, 2017 10:51
[2017-05-18] MEDS: predniSONE 20 MG TAB PO SCH (12:06)
[2017-05-18] MEDS: METOCLOPRAMIDE 5 MG TAB PEG SCH (12:06)
[2017-05-18] MEDS: CINACALCET 30 MG TAB (SENSIPAR) PEG SCH (12:06)
[2017-05-18] MEDS: (RENVELA) SEVELAMER **CARBONate** 800 MG TAB PEG SCH (12:07)
[2017-05-18 14:00] VITALS: BP 122/67
[2017-05-18] MEDS: CALCITONIN NASAL SPRAY 3.7 ML BTL SCH (16:51)
--- NOTE | 2017-05-18 20:41 | IPN ---
DATE: 05/18/2017 SUBJECTIVE: Mrs. Navarrete is seen this morning on her bedside. She is laying in the bed without any acute distress. She denies any dyspnea, chest pain, fever or chills. She is poorly communicative; however, nods her head in yes or no to simple questions. PHYSICAL EXAMINATION: VITAL SIGNS: Temperature 97 degrees Fahrenheit, heart rate 66 per minute and respiratory rate 20 per minute. Blood pressure 125/58 mmHg and oxygen saturation 95% on two liters oxygen. HEAD/NECK: Head is atraumatic. Neck veins are difficult to be assessed Pupils are equal and reactive to light and sclerae are anicteric. She is significantly hard of hearing. However, she does understand simple questions and answers. CARDIAC: Her heart sounds are regular and distant. RESPIRATORY: Lungs have scattered rhonchi at dependent parts. ABDOMEN: Soft and nontender. A feeding tube is in place without any drainage or infection. EXTREMITIES: Have no cyanosis or clubbing. NEUROLOGIC: She is at her baseline mentation. LABORATORY DATA: Today's labs show WBC count 17.2, hemoglobin 10.6 and hematocrit 33.3. Sodium 130 and potassium 5.0. BUN is 87 and creatinine 4.48. PROBLEMS: 1. End-stage renal disease. The patient was last dialyzed on Friday. She is being scheduled for next dialysis tomorrow. At present there is no indication for urgent dialysis today. 2. Hyponatremia. This is mild and stable, and it is related to her tube feeding and free water. It is likely to improve with hemodialysis tomorrow. No other intervention is indicated at this point. I have reviewed her nutrition and free water schedule which is appropriate. 3. Pneumonia and leukocytosis. The patient is currently afebrile. She does have history of recurrent aspiration pneumonia due to which she has been nothing by mouth and receives her nutrition and medications through the percutaneous endoscopic gastrostomy (PEG) tube. At present we will continue with antibiotics and monitor closely. 4. Anemia. Her anemia is chronic and stable and related to end-stage renal disease. No intervention is indicated at this point. 5. Nutrition. The patient has PEG tube for feeding due to recurrent aspiration pneumonia. [facility]
[2017-05-18] MEDS: SENNA 8.6 MG TAB (SENOKOT) PEG SCH (21:16)
[2017-05-18] MEDS: SODIUM CHLORIDE 0.9% NASAL GEL 15MG (AYR) SCH (21:16)
[2017-05-18] MEDS: SIMVASTATIN 20 MG TAB PEG SCH (21:16)
[2017-05-18 22:00] VITALS: BP 130/60
[2017-05-19] MEDS: IPRATROPIUM 0.5MG/ALBUTEROL 2.5MG INH SOL UD 3ML (DUONEB)(J7620) NEB SCH ×4 (03:10→19:40)
[2017-05-19] MEDS: LEVOTHYROXINE 125MCG TABLET (0.125MG) PO SCH (05:52)
[2017-05-19] MEDS: MIDODRINE 5 MG TAB PEG SCH ×3 (05:52→17:40)
[2017-05-19 06:00] VITALS: BP 117/63
[2017-05-19] MEDS: SENOKOT S TAB PO SCH ×2 (06:18→22:48)
[2017-05-19] MEDS: predniSONE 20 MG TAB PO SCH (06:18)
[2017-05-19] MEDS: FOLIC ACID 1 MG TAB PEG SCH (06:18)
[2017-05-19 06:22] LABS: MEAN CORPUSCULAR HEMOGLOBIN 32.4 pg (27.0-33.0); MEAN CORPUSCULAR HGB CONC 32.4 g/dl (32.0-36.5); RED CELL DISTRIBUTION WIDTH 15.5 % (11.5-14.5); WHITE BLOOD COUNT 14.6 K/mm3 (4.0-10.0)
[2017-05-19 06:38] LABS: ALBUMIN 3.6 GM/DL (3.2-5.2); CALCIUM LEVEL 9.3 MG/DL (8.8-10.2); CREATININE FOR GFR 5.95 MG/DL (0.55-1.02); GLOMERULAR FILTRATION RATE 7.4 (>39); MAGNESIUM LEVEL 3.7 MG/DL (1.8-2.4); PHOSPHORUS LEVEL 5.3 MG/DL (2.5-4.9); POTASSIUM SERUM 5.1 MEQ/L (3.5-5.1); VANCOMYCIN RANDOM 22.2 UG/ML
[2017-05-19] MEDS: HEPARIN SOD (PORCINE) 5000 UNITS/ML VIAL SC SCH ×2 (08:31→22:49)
[2017-05-19] MEDS: POLYVINYL ALCOHOL OPHTH SOLN 15 ML(LIQUITEARS) OU SCH ×4 (08:31→22:49)
[2017-05-19 10:00] VITALS: BP 118/65
[2017-05-19] MEDS ORDERED: HEPARIN 1,000 UNITS/ML 10ML VIAL (FOR RADIOLOGY& DIALYSIS ONLY) IV ONE (10:15)
[2017-05-19] MEDS: (RENVELA) SEVELAMER **CARBONate** 800 MG TAB PEG SCH (13:41)
--- NOTE | 2017-05-19 13:41 | IPNPDOC ---
Subjective Date Seen The patient was seen on 05/19/17. Subjective Chief Complaint/HPI Patient seen and examined at the bedside. Receiving dialysis today. No acute overnight events noted. Denies any acute complaints at this time. Objective Physical Examination General Exam: Positive: No Acute Distress, Other (patient has MR at baseline, however remains pleasant and nods that she is not in any pain) ENT Exam: Positive: Atraumatic, Mucous membr. moist/pink Neck Exam: Negative: JVD Chest Exam: Positive: Diminished, Negative: Rales Heart Exam: Positive: Rate Normal, Normal S1, Normal S2 Abdomen Exam: Positive: Soft, Other (+PEG tube), Negative: Tenderness Extremity Exam: Negative: Tenderness, Swelling Assessment /Plan Plan/VTE VTE Prophylaxis Ordered?: Yes Plan Dyspnea likely 2/2 HCAP, COPD exacerbation Patient currently requiring 2 L of oxygen supplementation via nasal cannula, at baseline she does require 2 L of oxygen continuously Blood culture with no growth as of today, Resp panel negative Cont PO Prednisone Continue Duoneb therapy, current med regimen Cont to PO Abx We will continue to monitor her progress and anticipate discharge tomorrow AM End-stage renal disease on hemodialysis (Mondays, Wednesdays, Fridays) Nephrology on board Leukocytosis likely secondary to steroids Blood cultures with no growth to date Patient has remained afebrile here this AM Macrocytic anemia Hemoglobin appears at baseline Mental retardation Patient's mentation appears to be at baseline Dyslipidemia Continue statin Hypothyroidism Cont Levothyroxine Hypotension Continue Midodrine 3 times a day History of aspiration pneumonitis Continue (PEG) feeding, aspiration precautions. DVT prophylaxis Heparin SC Disposition-patient's respiratory status continues to improve. Likely discharge back to [facility] in the AM. VS, I&O, 24H, Fishbone Vital Signs/I&O Vital Signs Date Time Temp Pulse Resp B/P (MAP) Pulse Ox O2 Delivery O2 Flow Rate FiO2 05/19/17 11:00 22 95 Nasal Cannula 2.0 05/19/17 10:00 97.2 68 118/65 (82) 05/17/17 09:00 I&O- Last 24 Hours up to 6 AM 05/19/17 06:00 Intake Total 1250 ml Output Total 0 ml Balance 1250 ml Laboratory Data 24H LABS Laboratory Tests 2 05/19/17 05:51: Blood Urea Nitrogen 132#H, Creatinine 5.95H, Sodium Level 129L, Potassium Level 5.1, Chloride Level 87L, Carbon Dioxide Level 25, Anion Gap 17H, Glomerular Filtration Rate 7.4L, Calcium Level 9.3, Phosphorus Level 5.3H, Magnesium Level 3.7H, Albumin 3.6, Random Vancomycin Level 22.2 CBC/BMP Laboratory Tests 05/19/17 05:51 Red Blood Count 3.29 L, Mean Corpuscular Volume 100.0 H, Mean Corpuscular Hemoglobin 32.4, Mean Corpuscular Hemoglobin Concent 32.4, Red Cell Distribution Width 15.5 H, Anion Gap 17 H Microbiology Microbiology 05/15/17 Blood Culture - Preliminary, Resulted No Growth after 72 hours. All specime... 05/16/17 Respiratory Virus Panel (PCR) ([facility]E) - Final, Complete TORI PITTS MD May 19, 2017 13:41
[2017-05-19] MEDS: METOCLOPRAMIDE 5 MG TAB PEG SCH (13:42)
[2017-05-19] MEDS: CINACALCET 30 MG TAB (SENSIPAR) PEG SCH (13:42)
[2017-05-19 14:20] VITALS: BP 115/69
[2017-05-19] MEDS: CALCITONIN NASAL SPRAY 3.7 ML BTL SCH (17:40)
--- NOTE | 2017-05-19 18:44 | IPN ---
DATE: 05/19/2017 SUBJECTIVE: The patient was seen and examined at the bedside today morning during hemodialysis procedure. Patient was tolerating the hemodialysis procedure well. She denies any active complaints at this time. REVIEW OF SYSTEMS: Patient is unable to provide any reliable review of systems. She is unable to communicate and she answers a few questions. OBJECTIVE: VITAL SIGNS: Temperature 9724 degrees Fahrenheit, blood pressure 118/65, pulse 68, respiratory rate 18, saturating 95% on nasal cannula. INTAKE/OUTPUT: Urine output is not recorded. Weight in the bed scale is 67.4 kg. PHYSICAL EXAMINATION: GENERAL: The patient is awake, alert, oriented times two sitting on the bed getting hemodialysis done. No apparent distress. HEAD and NECK: Extraocular muscles intact. Pupils are equally round and reactive to light. Mucous membranes are moist. NECK: Neck is supple, there is no jugular venous distention. Patient has a hemodialysis catheter. CARDIOVASCULAR: S1, S2, regular rate. No murmur, rub, or gallop. RESPIRATORY: Mildly decreased breath sounds at the bases and with mild crepitations with deep inspiration. ABDOMEN: Soft, positive bowel sounds, nontender. No ascites, no organomegaly. MUSCULOSKELETAL: No clubbing or cyanosis. Pulses are 2+. She has trace edema of the bilateral lower extremities. CENTRAL NERVOUS SYSTEM (AGRICULTURAL RESEARCH TECHNOLOGIST): Patient is oriented times two. No apparent distress at this time. She answers few questions. LABORATORY REVIEW: CBC showed a WBC of 14.6, hemoglobin 10.6, platelets 195. BMP showed sodium 129, potassium 5.1, chloride 87, bicarbonate 25, BUN 132, creatinine 5.9, magnesium 3.7. CURRENT INPATIENT MEDICATIONS: Patients medications were all reviewed my me. There is no change in the medication today as compared with yesterday. The patient has been started on Levaquin 250 mg by mouth 8 hourly. ASSESSMENT: 71-year-old female with endstage renal disease admitted this time with pneumonia and leukocytosis. PLAN: 1. End stage renal disease on hemodialysis. Patients last hemodialysis was on Friday. She is being dialyzed according to her Friday, Friday, Friday scheduled which we should try to do interpretation as tolerated by the patient. 2. Hyponatremia. Patient has hypervolemic hyponatremia, sodium level is expected to improve with hemodialysis. 3. Aspiration pneumonitis. Patient white cell count is improving. She is currently on Levaquin which is renally dosed. Continue nebulizations for symptomatic relief. The rest of the management is as per primary team. 4. Anemia and end stage renal disease. Hemoglobin is 10.6 which is adequate at this time. No need of Aranesp administration at this time. 5. History of recurrent aspiration. Currently on bag tube feeds. Continue the nothing by mouth diet at this time. Bag tube feeding is as per primary team recommendations. However I feel that patient is stable at this time and we can start the bag tube feedings.
[2017-05-19 22:00] VITALS: BP 136/64
[2017-05-19] MEDS: SENNA 8.6 MG TAB (SENOKOT) PEG SCH (22:48)
[2017-05-19] MEDS: SIMVASTATIN 20 MG TAB PEG SCH (22:48)
[2017-05-19] MEDS: SODIUM CHLORIDE 0.9% NASAL GEL 15MG (AYR) SCH (22:49)
[2017-05-20] MEDS: IPRATROPIUM 0.5MG/ALBUTEROL 2.5MG INH SOL UD 3ML (DUONEB)(J7620) NEB SCH ×2 (01:44→07:57)
[2017-05-20] MEDS: LEVOTHYROXINE 125MCG TABLET (0.125MG) PO SCH (05:34)
[2017-05-20] MEDS: MIDODRINE 5 MG TAB PEG SCH ×2 (05:35→11:49)
[2017-05-20 06:00] VITALS: BP 108/53
[2017-05-20 06:02] LABS: MEAN CORPUSCULAR HEMOGLOBIN 33.1 pg (27.0-33.0); MEAN CORPUSCULAR VOLUME 100.4 fl (80.0-96.0); RED CELL DISTRIBUTION WIDTH 15.7 % (11.5-14.5); WHITE BLOOD COUNT 11.1 K/mm3 (4.0-10.0)
[2017-05-20 06:21] LABS: ALBUMIN 3.3 GM/DL (3.2-5.2); CALCIUM LEVEL 9.1 MG/DL (8.8-10.2); CREATININE FOR GFR 2.98 MG/DL (0.55-1.02); GLOMERULAR FILTRATION RATE 16.4 (>39); PHOSPHORUS LEVEL 3.4 MG/DL (2.5-4.9); POTASSIUM SERUM 3.4 MEQ/L (3.5-5.1)
[2017-05-20 07:59] VITALS: O2SAT 95
[2017-05-20] MEDS: HEPARIN SOD (PORCINE) 5000 UNITS/ML VIAL SC SCH (08:02)
[2017-05-20] MEDS: predniSONE 20 MG TAB PO SCH (08:02)
[2017-05-20] MEDS: SENOKOT S TAB PO SCH (08:02)
[2017-05-20] MEDS: POLYVINYL ALCOHOL OPHTH SOLN 15 ML(LIQUITEARS) OU SCH ×2 (08:02→11:49)
[2017-05-20] MEDS: FOLIC ACID 1 MG TAB PEG SCH (08:02)
[2017-05-20] MEDS ORDERED: PRED10TA2 PO (08:21)
[2017-05-20] MEDS ORDERED: LEVA1TAB PEG (08:21)
[2017-05-20] MEDS ORDERED: LevoFLOXacin 250 MG TABLET PEG SCH (09:00)
--- NOTE | 2017-05-20 10:38 | DS.PDOC ---
Discharge Summary General Date of Admission May 16, 2017 at 00:25 Date of Discharge 05/20/17 Primary Care Physician: LUCINA POP DO Discharge Summary PROCEDURES PERFORMED DURING STAY: None. ADMITTING DIAGNOSES: 1. . Pneumonia 2. . COPD exacerbation 3. . End-stage renal disease on hemodialysis DISCHARGE DIAGNOSES: 1. . Pneumonia 2. . COPD exacerbation 3. . End-stage renal disease on hemodialysis COMPLICATIONS/CHIEF COMPLAINT: Copd/Esrd/Pna. HISTORY OF PRESENT ILLNESS: . 71-year-old female with past medical history of end-stage renal disease on hemodialysis Mondays, Wednesdays, Fridays, diastolic congestive heart failure, COPD on 2 L of oxygen at baseline, mental retardation, dementia, history of aspiration status post PEG tube, hearing deficiency, seizure disorder, hypothyroidism, and osteoarthritis was sent over from [facility] with a chief complaint of dyspnea, tachypnea, and a productive cough. The patient's history was limited given the patient's baseline cognitive deficiency. However there were no reported complaints of abdominal pain, chest pain or any other acute complaints. In the ER, the patient was noted to be febrile and a CT scan of the chest revealed a left lower lobe infiltrate consistent with pneumonia. The patient was started on IV antibiotics and admitted to the hospitalist service. During hospitalization, the patient was started on IV antibiotics for healthcare associated pneumonia. The patient's respiratory status subsequently improved and she defervesced. Blood cultures were noted to be negative. The patient's IV antibiotics were subsequently changed to by mouth renally dosed Levaquin. In addition, the patient was started on IV steroid therapy for her underlying COPD exacerbation. This was transitioned to by mouth steroids and she is currently on a tapering dose of this. As for the patient's end-stage renal disease, nephrology was consulted and the patient was dialyzed according to her normal schedule. At this time, the patient has returned back to her baseline status. She will be discharged back to [facility] and will complete her trial of antibiotics and a tapering dose of steroids. The patient will need to be sent back to the ER if her symptoms return or persist. DISCHARGE MEDICATIONS: Please see below. ALLERGIES: Please see below. PHYSICAL EXAMINATION ON DISCHARGE: VITAL SIGNS: Please see below. General Exam: Positive: No Acute Distress, Other (patient has MR at baseline, however remains pleasant and nods that she is not in any pain) ENT Exam: Positive: Atraumatic, Mucous membr. moist/pink Neck Exam: Negative: JVD Chest Exam: Positive: Diminished, Negative: Rales Heart Exam: Positive: Rate Normal, Normal S1, Normal S2 Abdomen Exam: Positive: Soft, Other (+PEG tube), Negative: Tenderness Extremity Exam: Negative: Tenderness, Swelling LABORATORY DATA: Please see below. IMAGING: CT of the chest without contrast Clinical statement: Shortness of breath. Technique: Multiple axial CT images were obtained with 5 mm cuts through the chest without administration of contrast. Comparison: 03/17/2017. Findings: There is no thoracic lymphadenopathy. The visualized portions of the thyroid gland is unremarkable. There are patchy infiltrates in the left lower lung with small left-sided pleural effusion. Limited imaging of the upper abdomen does not demonstrate any acute abnormalities. There are no suspicious osseous lesions. Impression: Left lower lobe infiltrate consistent with pneumonia. Small left- sided pleural effusion. PROGNOSIS: Medically stable ACTIVITY: As tolerated. DIET: . As previously prescribed DISCHARGE PLAN: [facility] DISPOSITION: . [facility] DISCHARGE INSTRUCTIONS: 1. . Follow-up with primary care physician within one week 2. . Complete antibiotic trial and steroid dose taper 3. . Return to the ER if symptoms persist or worsen DISCHARGE CONDITION: Stable. TIME SPENT ON DISCHARGE: Greater than 30 minutes. Vital Signs/I&Os Vital Signs Date Time Temp Pulse Resp B/P (MAP) Pulse Ox O2 Delivery O2 Flow Rate FiO2 05/20/17 09:00 Nasal Cannula 2.0 05/20/17 07:59 95 05/20/17 06:00 97.8 76 20 108/53 (71) 05/17/17 09:00 I&O- Last 24 Hours up to 6 AM 05/20/17 06:00 Intake Total 390 ml Output Total 2000 ml Balance -1610 ml Laboratory Data Labs 24H Laboratory Tests 2 05/20/17 05:30: Blood Urea Nitrogen 57#H, Creatinine 2.98H, Sodium Level 132L, Potassium Level 3.4#L, Chloride Level 94L, Carbon Dioxide Level 29, Anion Gap 9, Glomerular Filtration Rate 16.4L, Calcium Level 9.1, Phosphorus Level 3.4#, Magnesium Level 3.0H, C-Reactive Protein, Quantitative 2.01H, Albumin 3.3 CBC/BMP Laboratory Tests 05/20/17 05:30 Red Blood Count 3.32 L, Mean Corpuscular Volume 100.4 H, Mean Corpuscular Hemoglobin 33.1 H, Mean Corpuscular Hemoglobin Concent 33.0, Red Cell Distribution Width 15.7 H, Anion Gap 9 Microbiology Microbiology 05/15/17 Blood Culture - Preliminary, Resulted No Growth after 72 hours. All specime... 05/16/17 Respiratory Virus Panel (PCR) (DEBBIE) - Final, Complete Discharge Medications Scheduled (Nepro with Carb Steady) 1 Liq Liq, 200 ML PEG QID, (Reported) @ 0500, 1200, 1700, 2100 (Fariba-Bee/C) 1 Tab Tab, 1 TAB PEG DAILY, (Reported) @ 1200 Albuterol/Ipratropium (Ipratropium Giltner/Albut 0.5-2.5 (3) mg/3Ml) 1 Jojo Jojo, 1 OJJO INH QID, (Reported) @ 0500, 1200, 1700, 2100 Artificial Tears (Akwa Tears) 1.4 % Jojo, 2 DROP OU QID, (Reported) Calcitonin ([place]) (Miacalcin) 200 Unit/Act Spr, 200 UNIT NA QPM, (Reported) @ 1700 Cinacalcet Hydrochloride (Sensipar) 30 Mg Tab, 30 MG PEG DAILY, (Reported) @ 1200 Folic Acid (Folic Acid) 1 Mg Tab, 1 MG PEG DAILY, (Reported) @ 1200 Levofloxacin Hemihydrate (Levaquin) 250 Mg Tab, 250 MG PEG Q2D Levothyroxine Sodium (Synthroid) 125 Mcg Tab, 125 MCG PO DAILY, (Reported) @ 1100 Metoclopramide Hcl (Reglan) 5 Mg Tab, 5 MG PEG DAILY, (Reported) @ 1100 Midodrine HCl (Midodrine HCl) 10 Mg Tab, 10 MG PEG TID, (Reported) @ 0500, 1200, 1700 Potassium Chloride (Potassium Chloride) 20 Meq/15 Ml Liquid, 10 MEQ PEG DAILY, ( Reported) @ 1200 Prednisone (Prednisone) 10 Mg Tab, 10 MG PO ASDIRECTED Senna (Senna) 8.6 Mg Cap, 2 CAP PEG QHS, (Reported) Sevelamer Carbonate (Renvela Oral Suspension) 2.4 Gm Gm, 2.4 GM PEG DAILY, ( Reported) @ 1200 Simvastatin (Zocor) 20 Mg Tab, 20 MG PEG QHS, (Reported) Sodium Chloride ([place] Saline Nasal Gel) 1 Dose/15 Gm Dose, 1 DOSE NA QHS, ( Reported) Scheduled PRN (Beeswax Lip [facility]) 1 Mis Mis, 1 MIS EXT ASDIRECTED PRN for DRY LIPS, (Reported) USUALLY KEEPS AT BEDSIDE Bisacodyl (Dulcolax) 10 Mg Sup, 10 MG SC DAILY PRN for CONSTIPATION, (Reported) Sodium Phosphate/Biphosphate (Enema 7-19 gm/118Ml) 1 Gaurang Gaurang, 1 GAURANG SC DAILY PRN for CONSTIPATION, (Reported) Allergies Coded Allergies: Penicillins (Verified Allergy, Intermediate, RASH, 01/12/17) Penicillins Cross Reactors (Verified Allergy, Intermediate, RASH, 01/12/17) Acetaminophen (Verified Adverse Reaction, Mild, RASH - DR HERNANDEZ SAYS ALLERGY IS SUSPECT (CALLED 04/06/13), 01/12/17) PATIENT STATES THAT IT CAUSED GOUT...AGAIN SUSPECT TORI PITTS MD May 20, 2017 10:38
[2017-05-20] MEDS: (RENVELA) SEVELAMER **CARBONate** 800 MG TAB PEG SCH (11:49)
[2017-05-20] MEDS: METOCLOPRAMIDE 5 MG TAB PEG SCH (11:49)
[2017-05-20] MEDS: CINACALCET 30 MG TAB (SENSIPAR) PEG SCH (11:49)
--- NOTE | 2017-05-20 12:21 | IPN ---
DATE: 05/20/2017 SUBJECTIVE: The patient was seen and examined at the bedside today morning. The patient is asymptomatic at this time. She was dialyzed yesterday. She tolerated the dialysis well. REVIEW OF SYSTEMS: Patient is unable to provide any reliable review of systems. She is awake and in no apparent distress at this time. She is unable to communicate. OBJECTIVE: VITAL SIGNS: Temperature 97.8 degrees Fahrenheit, blood pressure 108/53, pulse 76, respiratory rate 20, saturating 98% on nasal cannula at 2 liters. INTAKE/OUTPUT: Urine output is not recorded. Ultrafiltration with hemodialysis was 2 liters yesterday. Weight in the bed scale is not available. PHYSICAL EXAMINATION: GENERAL: The patient is awake, alert, oriented times one, lying in bed. No apparent distress. HEAD and NECK: Extraocular muscles intact. Pupils are equally round and reactive to light. Mucous membranes are moist. NECK: Neck is supple, there is no jugular venous distention. CARDIOVASCULAR: S1, S2, regular rate. No murmur, rub, or gallop. RESPIRATORY: Mildly decreased breath sounds at the bases with mild inspiratory crackles. Otherwise, bilateral equal air entry. ABDOMEN: Soft, positive bowel sounds, nontender. No ascites, no organomegaly. MUSCULOSKELETAL: No clubbing or cyanosis. Pulses are 2+. She has trace edema of the bilateral lower extremities. 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 No apparent distress at this time. She is very hard of hearing. LABORATORY REVIEW: CBC showed a WBC of 11.1, hemoglobin 11, platelets 171. BMP showed sodium 132, potassium 3.4, chloride 94, bicarbonate 29, BUN 57, creatinine is 2.9, albumin 3.3. CURRENT INPATIENT MEDICATIONS: Patients medications were all reviewed my me. There is no change in the medication today as compared with yesterday. ASSESSMENT: 71-year-old female with endstage renal disease on hemodialysis admitted this time with pneumonia and leukocytosis. PLAN: 1. End stage renal disease. The patient's regular dialysis days are Friday, Friday, Friday . She was dialyzed yesterday. Next hemodialysis session will be tomorrow, as per regular schedule. 2. Hyponatremia. Sodium level is improving with hemodialysis. It is hypervolemic hyponatremia. 3. Pneumonia. The patient is currently on Levaquin. White cell count is improving. Shortness of breath is improving. Continue the nebulizations at this time. 4. Anemia and end stage renal disease. Hemoglobin is up to 11 now. No need of Aranesp administration at this time.
== END 2017-05-20 12:45 | disposition home or self-care (01) | DRG 193 ==
LOC: M ED 18:19 → EDBD 18:19 → M ED INP 05-16 00:25 → M MSPAV 05-16 01:21
PROVIDERS: ADMIT Hospitalist; ATTEND Internal Medicine
DX: J15.9 Unspecified bacterial pneumonia (principal); N18.6 End stage renal disease; J44.1 Chronic obstructive pulmonary disease with (acute) exacerbation; I50.32 Chronic diastolic (congestive) heart failure; E87.0 Hyperosmolality and hypernatremia; E03.9 Hypothyroidism, unspecified; G40.909 Epilepsy, unspecified, not intractable, without status epilepticus; M19.90 Unspecified osteoarthritis, unspecified site; F03.90 Unspecified dementia, unspecified severity, without behavioral disturbance, psychotic disturbance, mood disturbance, and anxiety; Z79.899 Other long term (current) drug therapy; Z88.0 Allergy status to penicillin; Z88.8 Allergy status to other drugs, medicaments and biological substances; F70 Mild intellectual disabilities; Z93.1 Gastrostomy status; K59.00 Constipation, unspecified; I25.10 Atherosclerotic heart disease of native coronary artery without angina pectoris; I48.91 Unspecified atrial fibrillation; D63.1 Anemia in chronic kidney disease; R91.8 Other nonspecific abnormal finding of lung field; H91.90 Unspecified hearing loss, unspecified ear; E83.52 Hypercalcemia